=== PATIENT | male | born 1985 | race Caucasian/White ===

== ENCOUNTER → 2021-03-22 15:59 | Outpatient (BNVA) | payer MEDICARE, BC, MEDICAID, SELFPAY | PROVIDERS: Visit Provider Internal Medicine | DX: M86.672 Other chronic osteomyelitis, left ankle and foot (principal); E10.9 Type 1 diabetes mellitus without complications; F17.210 Nicotine dependence, cigarettes, uncomplicated; Z89.432 Acquired absence of left foot | CPT/HCPCS: 99202 ==

== ENCOUNTER 2021-07-16 16:21 | Outpatient (REF) | payer BC, MEDICAID, SELFPAY | END 2021-07-16 16:22 | disposition home or self-care (01) | LOC: HO.LNP 16:21 | PROVIDERS: Visit Provider Physician Assistant | DX: Z13.89 Encounter for screening for other disorder (principal) | CPT/HCPCS: 87071; 87077; 87147; 87186; 87205 ==

== ENCOUNTER 2022-01-14 17:40 | Outpatient (REF) | payer MEDICARE, MEDICAID, SELFPAY ==
--- NOTE | ~2022-01-14 | MR_ITS ---
EXAMINATION: MRI FOOT WITHOUT CONTRAST, LEFT CLINICAL INFORMATION: Nonhealing wound. COMPARISON: None TECHNIQUE: MRI without contrast is performed on the left foot. According to the technologist, the patient refused intravenous contrast administration. FINDINGS: Transmetatarsal amputation. There is skin thickening distal to the 1st metatarsal osteotomy. There is a bony protuberance/spurring at the plantar aspect of the distalmost 1st metatarsal which is in close proximity to a shallow soft tissue ulceration. Soft tissue edema compatible with cellulitis. No abscess. There is mild edema of the underlying spurring and marrow edema of the distalmost 1st metatarsal particularly the lateral aspect, which is suspicious for osteomyelitis. Mild marrow edema is also present at the lateral aspect of the cuboid which could represent a contusion or stress reaction. Bone marrow signal is otherwise unremarkable. MR/MR foot LT wo con IMPRESSION: 1. Transmetatarsal amputation with a shallow soft tissue ulceration at the plantar aspect of the distal 1st metatarsal. There is mild marrow edema of the distalmost 1st metatarsal which is suspicious for osteomyelitis. No abscess. 2. Mild marrow edema at the lateral aspect of the cuboid which could represent a contusion or stress reaction.
--- NOTE | ~2022-01-14 | XR_ITS ---
EXAMINATION: CR X-RAY PRE-MRI SCREENING CLINICAL INFORMATION: Pre-MRI orbit, rule out foreign body. COMPARISON: None TECHNIQUE: 3 views of the orbits were obtained. FINDINGS: The bony orbits are intact. No radiopaque foreign body is seen. The paranasal sinuses are clear. No other osseous abnormalities are identified. XR/XR pre mri screening IMPRESSION: Unremarkable orbits. No radiopaque foreign body seen.
== END 2022-01-14 17:41 | disposition home or self-care (01) ==
LOC: HO.MRI 17:40
PROVIDERS: Visit Provider Physician Assistant
DX: E11.621 Type 2 diabetes mellitus with foot ulcer (principal); L97.322 Non-pressure chronic ulcer of left ankle with fat layer exposed; Z89.422 Acquired absence of other left toe(s)
CPT/HCPCS: 73718

== ENCOUNTER → 2022-02-17 08:24 | Outpatient (BNVA) | payer MEDICARE, MEDICAID, SELFPAY | PROVIDERS: Referring Provider Internal Medicine; Visit Provider Surgery | DX: M86.672 Other chronic osteomyelitis, left ankle and foot (principal); Z89.432 Acquired absence of left foot | CPT/HCPCS: 99202 ==

== ENCOUNTER 2022-02-28 07:01 | Day surgery (SDC) | payer MEDICARE, MEDICAID, SELFPAY ==
[2022-02-23 11:33] VITALS: BMI 23.8
--- NOTE | 2022-02-25 08:12 | P.CONAN_ITS ---
Documented by User: Ailyn Sheriff NP 02/25/22 08:15 HPI - Anesthesia Eval Consult details Narrative: 36yo M for Left Debridement Soft Tissue of Foot Ulcer, Debridement Bone of Foot Ulcer Pt admits to daily heroin use, occassional cocaine. Unable to stop prior to DOS. Case reviewed with Dr Ray. Need note of urgency from surgeon to proceed with positive urin drug screen. Dr Robles notified via tigertext and agreeable to this plan. [facility] Active Problems Active Problems: All Active Problems (Updated 02/23/22 @ 11:31 by Laura Snyder RN) Diabetes type I (Acute) History of transmetatarsal amputation of left foot (Acute) Polysubstance (including opioids) dependence, daily use (Acute) Tobacco use disorder (Acute) Chronic osteomyelitis of left foot (Acute) Past Medical History Medical History Chronic osteomyelitis of left foot Diabetes type I History of MRSA infection Polysubstance (including opioids) dependence, daily use Tobacco use disorder Surgical History Surgical History History of foot surgery History of transmetatarsal amputation of left foot Hx of surgical amputation of finger Social History Social History Household Members Other:: Lives in basement of [facility] Are you a primary rn progressive care unit to a significant other at home: No Patient Tobacco Use Status: Current everyday Tobacco user Tobacco use type: Cigarette Cigarette Packs Per Day: 0.75 Cigarettes Per Day: 15.0 Years Smoked: ~ 20 Patient Interested in Nicotine Replacement: No Patient Given Instructions on How to Stop Smoking: Yes Date Education Initiated: 02/23/22 Use of substances other than those prescribed or required for medical reasons: Yes Substance Use Type Other:: Daily Heroin for pain control Substance Use Frequency: Daily Have you been hit, kicked, punched, or otherwise hurt by someone within the past year? If so, by whom?: No Are you DNR?: No Advance Directives: No Advance Directives Information Provided: Yes Advance Directives on File: No Recently lost weight without trying: No Meds Allergies Allergy/AdvReac Type Severity Reaction Status Date / Time NSAIDS (Non-Steroidal AdvReac Vomiting Verified 02/23/22 11:30 Anti-Inflamma Home Medications Medication Instructions Recorded Confirmed Last Taken Type insulin glargine 100 unit/mL (3 40 unit subcut DAILY 02/17/22 02/23/22 Unknown History mL) subcutaneous pen (Lantus Solostar U-100 Insulin) insulin lispro 100 unit/mL See Rx Instructions .Route .COMPLEX 02/17/22 02/23/22 Unknown History subcutaneous pen (Humalog KwikPen (U-100) Insulin) levofloxacin 750 mg tablet 750 mg PO DAILY 02/17/22 02/23/22 Unknown History doxycycline hyclate 100 mg capsule 1 cap PO BID 02/23/22 02/23/22 Unknown History Exam Exam Date and Time: February 25, 2022811 Height,Weight and Vital Signs: Height 5 ft 10.5 in Weight 76.204 kg Assessment and Plan Assessment Anesthesia Assessment: Chart Reviewed Documented by User: Doreen Casarez MD 02/28/22 08:45 PMFSH Past Medical History Medical History Chronic osteomyelitis of left foot Diabetes type I History of MRSA infection Polysubstance (including opioids) dependence, daily use Tobacco use disorder Surgical History Surgical History History of foot surgery History of transmetatarsal amputation of left foot Hx of surgical amputation of finger History of Problems with Anesthesia: No Social History Social History Household Members Other:: Lives in basement of [facility] Are you a primary rn progressive care unit to a significant other at home: No Patient Tobacco Use Status: Current everyday Tobacco user Tobacco use type: Cigarette Cigarette Packs Per Day: 0.75 Cigarettes Per Day: 15.0 Years Smoked: ~ 20 Patient Interested in Nicotine Replacement: No Patient Given Instructions on How to Stop Smoking: Yes Date Education Initiated: 02/23/22 Use of substances other than those prescribed or required for medical reasons: Yes Substance Use Type Other:: Daily Heroin for pain control Substance Use Frequency: Daily Have you been hit, kicked, punched, or otherwise hurt by someone within the past year? If so, by whom?: No Are you DNR?: No Advance Directives: No Advance Directives Information Provided: Yes Advance Directives on File: No Recently lost weight without trying: No Meds Allergies Allergy/AdvReac Type Severity Reaction Status Date / Time NSAIDS (Non-Steroidal AdvReac Vomiting Verified 02/23/22 11:30 Anti-Inflamma Home Medications Medication Instructions Recorded Confirmed Last Taken Type insulin glargine 100 unit/mL (3 40 unit subcut DAILY 02/17/22 02/23/22 Unknown History mL) subcutaneous pen (Lantus Solostar U-100 Insulin) insulin lispro 100 unit/mL See Rx Instructions .Route .COMPLEX 02/17/22 02/23/22 Unknown History subcutaneous pen (Humalog KwikPen (U-100) Insulin) levofloxacin 750 mg tablet 750 mg PO DAILY 02/17/22 02/23/22 Unknown History doxycycline hyclate 100 mg capsule 1 cap PO BID 02/23/22 02/23/22 Unknown History Exam Airway Mallampati Class: III (Globally poor dentition; teeth broken and cracked) TM Dist: >3cm Neck ROM: Full Loose/Missing/Broken Teeth: Yes, Upper and Lower Heart: RRR Lungs: CTA Other: positive tox screen; however case must proceed based on osteomyelitis with exposed bone Assessment and Plan Assessment Anesthesia Assessment: Anesthesia Plan Discussed Final Anesthetic Review History of Problems with Anesthesia: No NPO: Yes ASA Class: III Final Preanesthetic Review: Meds/Allgs Chart Reviewed, Consent Obtained/Reviewed and Anes Risks/Benef Reviewed Patient Risk: Intermediate Procedure Risk: Low Anesthetic Plan Anesthetic Plan: GA Disposition: Standard PACU
[2022-02-28 07:46] LABS: Amphetamine Screen Urine Not Detected (Not Detect); Barbiturates, Urine Not Detected (Not Detect); Benzodiazepines Screen Urine Not Detected (Not Detect); Cannabinoid Screen Urine POSITIVE (Not Detect); Cocaine Screen Urine POSITIVE (Not Detect); Fentanyl, urine POSITIVE (Not Detect); Opiate Screen Urine POSITIVE (Not Detect); Phencyclidine Screen Urine Not Detected (Not Detect)
[2022-02-28] MEDS: Lactated Ringers 1,000 ML 100 ML IVCONT (07:57)
--- NOTE | 2022-02-28 09:04 | MHC.SHP ---
Pre-Procedural Eval Section A Date of Service: 02/28/22 The patient is an INPATIENT: No Changes since office visit: Yes Patient answered all questions; No Cold of Flu in the past 2 weeks, No New Medical Problems and No Changes in Medication The History & Physical has been completed within 30 days and I have reviewed it.: Yes Section B Chief Complaint: Acquired absence of left foot,chronic osteomyeliti Allergies: Allergies Allergy/AdvReac Type Severity Reaction Status Date / Time NSAIDS (Non-Steroidal AdvReac Vomiting Verified 02/23/22 11:30 Anti-Inflamma Plan Diagnosis/Plan: Unchanged I have reviewed the history and physical and performed a pertinent physical examination on my patient. No changes have occurred unless specified. Patient's tox screen is positive however the procedure needs to be performed due to the risk of limb loss with exposed bone. The patient understands the risks of anesthesia with the positive tox screen and wishes to proceed. Time Spent With Patient Time: Total time managing care of this patient today ____ minutes.
--- NOTE | 2022-02-28 09:41 | W.PM.OPN ---
Operative Note Operative Note Date of Service: 02/28/22 Narrative: Preoperative diagnosis: osteomyelitis left foot, status post TMA Postoperative diagnosis: same Procedure: debridement 1st metatarsal left foot including skin and bone Surgeon: Trace Robles MD [employer] Director: none Anesthesia: general LMA Indications for procedure: 36-year-old male patient presenting with a history of diabetes mellitus, s/p bilateral transmetatarsal amputation. He has a chronic draining wound of the left foot at the 1st metatarsal head and was found to have osteomyelitis. He presents today for debridement. Operative findings: Exposed bone coming through open wound consistent with osteomyelitis. Specimen: Skin subcutaneous tissue and bone left foot Estimated blood loss: less than 2 mL Complications: none Procedure details: Patient was taken to the OR and placed in the supine position. After administering general anesthesia, the patient's left foot was prepped with Betadine and draped in a sterile fashion. A surgical time-out was called the consent confirmed. Patient received preoperative antibiotics and Venodyne boots were in place on the right leg. A local block was performed using Sensorcaine 0.5% as a digital block. A plantar wound was noted with exposed bone through the wound. This was grasped using a rongeur and the bone easily removed. The bone appeared to be infected in a fractured piece. This was sent to pathology for further examination. Surrounding callus and nonviable subcutaneous tissue was then excised with a total area debrided measured 2 x 2 cm. Rongeur was used to further trim the 1st metatarsal distal segment. Bone appeared healthy at this point. Wounds were then thoroughly irrigated with saline solution and suctioned dry. Wounds were packed with 1/4 inch iodoform gauze followed by fluffed gauze and Kerlix. The patient tolerated the procedure well was transferred to PACU in stable condition. Sponge, instrument, and needle counts reported as correct. Patient was discharged with a prescription for oxycodone 5 mg p.o. q.6 hours p.r.n. for pain (15 tablets).
[2022-02-28 09:46] VITALS: BP 130/81; PULSE 66; RESP 18; TEMP 36.2; O2SAT 100
[2022-02-28 09:51] VITALS: BP 129/84; PULSE 69; RESP 18; O2SAT 100
[2022-02-28 09:56] VITALS: BP 138/92; PULSE 71; RESP 18; O2SAT 100
[2022-02-28 10:01] VITALS: BP 150/93; PULSE 75; RESP 18; O2SAT 100
[2022-02-28 10:16] VITALS: BP 158/90; PULSE 84; RESP 20; O2SAT 100
[2022-02-28] MEDS: HYDROmorphone HCl 0.5 MG/0.5 ML SYRINGE IVPUSH (10:16)
[2022-02-28] MEDS: oxyCODONE HCl Immed Release 5 MG TABLET 10 MG PO (10:16)
[2022-02-28 10:21] VITALS: BP 142/91; PULSE 78; RESP 20; O2SAT 99
--- NOTE | 2022-02-28 10:43 | PC.NURSE ---
PATIENT REFUSED WHEELCHAIR. PATIENT SIGNED DISCHARGE PAPERS BUT REFUSED TO BE BROUGHT DOWN TO FRONT IN WHEELCHAIR. PATIENT LEFT AMA AFTER SIGNING DC PAPERS ON HIS OWN. PT DID NOT SIGN AMA PAPERS.
== END 2022-02-28 10:47 | disposition home or self-care (01) ==
PROVIDERS: Nurse Practitioner; PCP Internal Medicine; Visit Provider Surgery
PROC: (CPT 11044; principal; 2022-02-28 09:10)
PROC: (CPT 11044; 2022-02-28 09:10)
DX: E10.69 Type 1 diabetes mellitus with other specified complication (principal); M86.672 Other chronic osteomyelitis, left ankle and foot; M87.875 Other osteonecrosis, left foot; E10.621 Type 1 diabetes mellitus with foot ulcer; L97.429 Non-pressure chronic ulcer of left heel and midfoot with unspecified severity; Z79.4 Long term (current) use of insulin; Z89.432 Acquired absence of left foot; F19.20 Other psychoactive substance dependence, uncomplicated; F17.210 Nicotine dependence, cigarettes, uncomplicated; Z86.14 Personal history of Methicillin resistant Staphylococcus aureus infection; Z79.899 Other long term (current) drug therapy
CPT/HCPCS: 11044; 80307; 88304; 88311; J0690; J1100; J1170; J2250; J2370; J2405; J2795; J3010

== ENCOUNTER → 2022-03-10 08:58 | Outpatient (BNVA) | payer MEDICARE, MEDICAID, SELFPAY | PROVIDERS: PCP Internal Medicine; Referring Provider Internal Medicine; Visit Provider Surgery | DX: Z13.89 Encounter for screening for other disorder (principal) | CPT/HCPCS: 99212 ==

== ENCOUNTER → 2022-03-22 16:00 | Outpatient (RCR) | payer MEDICARE, MEDICAID, SELFPAY | END | disposition home or self-care (01) | LOC: HO.WCC 06-15 08:57 | PROVIDERS: PCP Internal Medicine; Visit Provider Physician Assistant | DX: E10.621 Type 1 diabetes mellitus with foot ulcer (principal); L97.522 Non-pressure chronic ulcer of other part of left foot with fat layer exposed; T87.89 Other complications of amputation stump; E10.69 Type 1 diabetes mellitus with other specified complication; M86.9 Osteomyelitis, unspecified; E10.65 Type 1 diabetes mellitus with hyperglycemia; Z72.0 Tobacco use; Z89.422 Acquired absence of other left toe(s); Z79.2 Long term (current) use of antibiotics; Z79.4 Long term (current) use of insulin; Z79.899 Other long term (current) drug therapy; Z79.891 Long term (current) use of opiate analgesic | CPT/HCPCS: 11042; 11043; 15275; 87070; 87071; 87077; 87147; 87186; 87205; 97597; 97602; 99212; 99213; Q4187 ==

== ENCOUNTER 2022-05-27 12:44 | Outpatient (RCR) | payer MEDICARE, MEDICAID, SELFPAY ==
--- NOTE | ~2022-05-27 | XR_ITS ---
EXAMINATION: XR FOOT, LEFT CLINICAL INFORMATION: Wound, left foot. COMPARISON: None available. TECHNIQUE: AP, lateral, and oblique views of the left foot. FINDINGS: There has been a prior transmetatarsal amputation. The amputation bony margins appear sharp, without abnormal erosive change or periosteal thickening. No soft tissue gas or foreign body is seen. There is no left ankle joint effusion. Boehler's angle is normal. There is no calcaneal spur. XR/XR foot LT min 3V IMPRESSION: There are postoperative changes consistent with a prior transmetatarsal amputation. The amputation margins appear sharp, without abnormal bone erosion or periosteal thickening. No soft tissue gas is noted.
== END 2022-12-09 14:45 | disposition home or self-care (01) ==
LOC: HO.WCC 12:44
PROVIDERS: PCP Internal Medicine; Visit Provider Physician Assistant
DX: E10.621 Type 1 diabetes mellitus with foot ulcer (principal); L97.522 Non-pressure chronic ulcer of other part of left foot with fat layer exposed; T87.89 Other complications of amputation stump; E10.40 Type 1 diabetes mellitus with diabetic neuropathy, unspecified; F11.20 Opioid dependence, uncomplicated; F17.210 Nicotine dependence, cigarettes, uncomplicated; Z89.422 Acquired absence of other left toe(s)
CPT/HCPCS: 11042; 73630; 87070; 87073; 87076; 87077; 87186; 87205

== ENCOUNTER 2022-12-09 06:00 | Emergency (ER) | payer OTHER, MEDICARE, MEDICAID, SELFPAY ==
--- NOTE | 2022-12-09 | ECG_ITS ---
Test Reason : CP Blood Pressure : / mmHG Vent. Rate : 072 BPM Atrial Rate : 072 BPM P-R Int : 132 ms QRS Dur : 092 ms QT Int : 402 ms P-R-T Axes : 066 046 053 degrees QTc Int : 440 ms Normal sinus rhythm Nonspecific ST abnormality Abnormal ECG No previous ECGs available Referred By: Generic ED Physician Electronically Signed By:ALLY BARRERA MD
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
[2022-12-09 06:02] VITALS: BP 144/67; BP 153/94; PULSE 92; PULSE 94; RESP 18; O2SAT 98; BMI 23.1
[2022-12-09 06:34] LABS: Glucose, Whole Blood > 600 mg/dL (60-115)
[2022-12-09 06:34] LABS: Glucose, Whole Blood > 600 mg/dL (60-115)
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
[2022-12-09] MEDS: Insulin Regular, Human 100 UNIT/ML 3 ML VIAL 10 UNIT IVPUSH (06:47)
[2022-12-09] MEDS: 0.9 % Sodium Chloride 1,000 ML 999 ML IVCONT ×2 (06:47→07:48)
[2022-12-09 06:50] LABS: MANUAL DIFF FLAG NO
[2022-12-09 06:51] LABS: Basophils Percent Auto 0.5 % (0-2); Eosinophils Absolute Auto 0.2 X10*3/uL (0.0-0.4); Eosinophils Percent Auto 2.5 % (0-4); Hematocrit 36.6 % (42.0-52.0); Imm Gran Abs Auto 0.01 X10*3/uL (0.00-0.03); Imm Gran Pct Auto 0.2 % (0.0-0.4); Lymphocytes Percent Auto 16.2 % (20-40); Mean Corpuscular HGB Conc 32.8 g/dl (31.0-36.0); Mean Corpuscular Hemoglobin 27.3 pg (27.0-33.0); Mean Corpuscular Volume 83.2 fL (80.0-98.0); Mean Platelet Volume 9.6 fL (9.4-12.4); Monocytes Absolute Auto 0.3 X10*3/uL (0.1-1.2); Monocytes Percent Auto 5.1 % (2-11); Neutrophils Absolute Auto 4.6 x10*3/uL (2.0-8.3); Neutrophils Percent Auto 75.5 % (45-73); Platelet Count 306 X10*3/uL (160-400); Red Cell Distribution Width 13.2 % (11.0-16.0); White Blood Count 6.1 X10*3/uL (4.8-10.8)
[2022-12-09 06:53] LABS: Venous Blood Gas Refer to POC result
[2022-12-09 06:54] LABS: VBG Base Excess 8.4 mmol/L; VBG HCO3 33 mmol/L (22-26); VBG pCO2 49 mmHg; VBG pH 7.43 (7.32-7.43); VBG pO2 88 mmHg
[2022-12-09 07:11] LABS: Beta-Hydroxybutyrate 0.05 mmol/L (0.02-0.27)
[2022-12-09 07:19] LABS: Alanine Aminotransferase 144 U/L (0-40); Albumin Level 3.8 g/dL (3.5-5.0); Alkaline Phosphatase 492 U/L (39-117); Anion Gap 13 (12-20); Aspartate Amino Transferase 191 U/L (5-37); Bilirubin Direct 0.2 mg/dL (0.0-0.5); Bilirubin Total 0.3 mg/dL (0.0-1.0); Blood Urea Nitrogen 17 mg/dL (9-16); Calcium 9.9 mg/dL (8.4-10.2); Carbon Dioxide 28 mmol/L (22-29); Chloride 100 mmol/L (96-108); Creatinine Clr Calc Pharmacy 65.6; Estimated Glomerular Filt Rate 49; Glucose Random 644 mg/dL (60-115); Potassium 5.1 mmol/L (3.3-5.1); Sodium 136 mmol/L (135-145)
--- NOTE | 2022-12-09 07:20 | PC.NURSE ---
Patient alert but lethargic, bs re-checked 393, placed on monitor, fluids running per order
[2022-12-09 07:21] VITALS: PULSE 78; RESP 18; O2SAT 97
[2022-12-09 07:23] LABS: Glucose, Whole Blood 399 mg/dL (60-115)
--- NOTE | 2022-12-09 08:29 | PC.NURSE ---
Alert and oriented, remains slow to respond. Denies pain or discomfort. Voided large amount of clear urine into urinal. NSr on monitor.
[2022-12-09 08:30] VITALS: BP 150/87; PULSE 73; RESP 18; O2SAT 97
--- NOTE | 2022-12-09 08:47 | PC.NURSE ---
BS 128, patient drank two cups of apple juice.
[2022-12-09 08:58] LABS: Ethanol < 10 mg/dL
--- NOTE | 2022-12-09 09:06 | PC.NURSE ---
Patient requesting discharge. Drank two more cups of apple juice. Dexcome reading bs 117. Patient attempting to remove own iv, stating he is leaving. IV removed, provider aware. Mom and sister at bedside
--- NOTE | 2022-12-09 09:11 | PC.NURSE ---
Patient discharge with mom and girlfriend. Gait steady, mom and gf aware that BS is 117, mother stating she is a diabetic and will monitor dexacom to ensure BS does not drop
[2022-12-09 09:23] LABS: Glucose, Whole Blood 128 mg/dL (60-115)
== END 2022-12-09 09:13 | disposition home or self-care (01) ==
LOC: HO.ED 09:07
PROVIDERS: Emergency Medicine; Physician Assistant; Emergency Provider Emergency Medicine Emergency Medical Services; PCP Internal Medicine
DX: E10.65 Type 1 diabetes mellitus with hyperglycemia (principal); N17.9 Acute kidney failure, unspecified; F19.20 Other psychoactive substance dependence, uncomplicated; F17.210 Nicotine dependence, cigarettes, uncomplicated; Z86.14 Personal history of Methicillin resistant Staphylococcus aureus infection; Z79.4 Long term (current) use of insulin; Z79.899 Other long term (current) drug therapy
CPT/HCPCS: 36415; 70450; 72125; 80048; 80076; 80307; 82010; 82803; 82947; 85025; 93005; 96361; 96374; 99284; 99285

== ENCOUNTER 2024-11-12 15:55 | Emergency (ER) | payer MEDICARE, MEDICAID, SELFPAY ==
--- NOTE | ~2024-11-12 | XR_ITS ---
CLINICAL HISTORY: infection 3 views left foot Comparison: 06/09/2022 Findings: There is soft tissue lucency at the region of transmetatarsal forefoot amputation. The scattered soft tissue lucencies are most likely related to skin folds, but can not exclude draining sinus from osteomyelitis, correlate with clinical presentation. There is cortical bone destruction of the proximal 5th metatarsal post amputation remnant. There are also signs of bone destruction involving tibial side of the navicular bone medial cortex. No radiopaque foreign body. Impression: Findings are consistent with acute osteomyelitis of proximal 5th metatarsal surgical remnant which has progressed compared to 06/09/2022. Consider MRI with contrast for definitive diagnostic information. This document has been electronically signed by: Jarret Porras MD on 11/12/2024 17:34:19
--- NOTE | ~2024-11-12 | XR_ITS ---
CLINICAL HISTORY: pain r o osteo 3 views left ankle Comparison: None Findings: Ankle mortise is intact. No joint effusion. No radiopaque foreign body. Impression: Erosion and fragmentation of the proximal 5th metatarsal surgical remnant has progressed when compared to previous exam. The appearance is consistent with acute osteomyelitis. This document has been electronically signed by: Jarret Porras MD on 11/12/2024 17:37:27
--- NOTE | 2024-11-12 16:16 | ED_ITS ---
HPI - Extremity Injury (Lower) General Chief Complaint: General Medical Stated Complaint: L Foot infection Time Seen by Provider: 11/12/24 17:23 Source: patient Mode of arrival: ambulatory Limitations: no limitations History of Present Illness ED Provider: Dr. Alisha Woodall HPI Narrative: Patient comes to the emergency room complaining of left stump pain. Patient has history of partial foot amputation due to chronic osteomyelitis. Patient states that for the last 2-3 months, he has been complaining of worsening pain. Patient states that he has an opening on the lateral frontal aspect of the stump on the left side, and today he pulled out something that looked like a bone. Patient states that he has been having pain for weeks, but patient states that he had to be mentally prepared to come to the hospital. 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 Related Data Home Medications ?Medication ?Instructions ?Recorded ?Confirmed insulin lispro 100 unit/mL See Protocol subcut TIDWM 0 02/17/22 11/12/24 subcutaneous pen (Humalog KwikPen (U-100) Insulin) insulin glargine 100 unit/mL (3 0 - 45 unit subcut CLEMENTINA LY 11/12/24 11/12/24 mL) subcutaneous pen (Basaglar KwikPen U-100 Insulin) Allergies Allergy/AdvReac Type Severity Reaction Status Date / Time cephalexin (From Keflex) Allergy Vomiting Verified 11/12/24 16:19 Review of Systems 2 Review of Systems: Constitutional : No Weight loss, No Fever, No Chills, No Night Sweats, No Fatigue, No Malaise ENT/Mouth : No Hearing loss, No Ear Pain, No Nasal Congestion, No Sinus Pain, No Hoarseness, No sore throat, No Rhinorrhea, No Swallowing Difficulty Eyes: No Eye Pain, No Swelling, No Redness, No Foreign Body, No Discharge, No Vision Changes Cardiovascular : No Chest Pain, No SOB, No Dyspnea on Exertion, No Orthopnea, No Edema, No Palpitations Respiratory : No Cough, No Sputum, No Wheezing, No Smoke Exposure, No Dyspnea Gastrointestinal : No Nausea, No Vomiting, No Diarrhea, No Constipation, No abdominal Pain, No Hematochezia, No Melena Genitourinary : no irregular bleeding, No Dysuria, No Urinary Frequency, No Hematuria, No Urinary Incontinence, No Urgency, No Flank Pain, No Urinary Flow Changes, No Hesitancy Musculoskeletal : Complaining of left stump pain and drainage Skin : No Skin Lesions, No rash Neuro : No Weakness, No Numbness, No Paresthesias, No Loss of Consciousness, No Dizziness, No Headache Psych : No Anxiety/Panic, No Depression, No SI/HI/AH/VH, No Social Issues, Heme/Lymph: No Bruising, No Bleeding,No Lymphadenopathy Endocrine : No Polyuria, No Polydipsia, No Temperature Intolerance [facility] Past Medical History Medical History History of MRSA infection Chronic osteomyelitis of left foot Tobacco use disorder Polysubstance (including opioids) dependence, daily use Diabetes type I Surgical History History of foot surgery History of transmetatarsal amputation of left foot Hx of surgical amputation of finger S/P debridement (02/28/22) Social History Social History Household Members Other:: Lives in basement of [facility]mother[facility] House Are you a primary rn care transition to a significant other at home: No Comment: requests crutches Patient Tobacco Use Status: Current everyday Tobacco user Tobacco use type: Cigarette Cigarette Packs Per Day: 0.75 Cigarettes Per Day: 15.0 Years Smoked: ~ 20 Substance Use Type: Heroin Advance Directives: No Advance Directives Information Provided: No Physical Exam 2 Exam: Exam: Appearance: Alert. Oriented X3. No acute distress. Eyes: Pupils equal, round and reactive to light. ENT: Pharynx normal. Neck: Normal inspection. Neck supple. No lymph nodes noted. No crepitus CVS: Normal heart rate and rhythm. Pulses normal. Normal S1 and S2 Respiratory: No respiratory distress. Breath sounds normal. No Wheezing. No rales Abdomen: Soft and nontender. No rigidity. No distention. Skin: Skin warm and dry. Normal skin color. Normal skin turgor. Extremities: Patient has a right BKA, looks within normal limits. On the left foot, patient has a partial amputation of the foot. There is a small opening in the lateral frontal aspect, draining serosanguineous fluid, very tender to palpation on the lateral aspect of the stump Neuro: Oriented X 3. No motor deficit. No sensory deficit. Moving all extremities. No slurred speech. CN 2 through 12 grossly intact Psych: calm, cooperative, anxious, tearful Vital Signs: Vital Signs: Last Vital Signs Temp 98.6 F 11/12/24 18:15 Pulse 102 H 11/12/24 18:15 Resp 16 11/12/24 18:15 BP 125/77 11/12/24 18:15 Pulse Ox 98 11/12/24 18:15 O2 Del Method Room Air 11/12/24 18:15 BMI result Body Mass Index 20.1 Course Course Course Narrative: This is an RME: Additional HPI, ROS, PE not included below will be deferred to primary provider. RME assessment and note performed by: María Esteban PA-C 39-year-old male patient with history of diabetes mellitus type 1 on insulin, and peripheral vascular disease status post bilateral amputations including transmetatarsal amputation of the left foot, who presents to the ER with complaints of left lower extremity pain. Patient reports that he noticed a bony like structure poking out of his foot which he pulled out and through in the trash 3-4 days ago. He states that he has had increased pain and swelling. No fevers. Plan: Labs, x-ray, further ER evaluation needed. Medications Administered Generic Name Dose Route Start Last Admin Trade Name Freq PRN Reason Stop Dose Admin Sodium Chloride 2,000 mls @ 999 mls/hr 11/12/24 18:02 11/12/24 19:26 Ns IVCONT 11/12/24 20:02 0 mls/hr .Q2H1M ONE Infusion Discontinued Medications Generic Name Dose Route Start Last Admin Trade Name Freq PRN Reason Stop Dose Admin Diazepam 2.5 mg 11/12/24 18:02 11/12/24 18:26 Diazepam 10 Mg/2 Ml Cartridge IVPUSH 11/12/24 18:03 2.5 mg STAT STA Administration Vancomycin HCl 1,500 mg/ 500 mls @ 333.333 mls/hr 11/12/24 18:11/12/24 19:26 Sodium Chloride IV 11/12/24 19:31 0 mls/hr ONCE ONE Infusion Piperacillin Sod/Tazobactam 50 mls @ 100 mls/hr 11/12/24 18:11/12/24 19:03 Sod 3.375 gm/ Sodium Chloride IV 11/12/24 18:31 Infused ONCE ONE Infusion Insulin Human Regular 10 unit 11/12/24 18:16 11/12/24 18:45 Insulin Regular, Human 100 Unit/Ml 10 Ml Vial IVPUSH 11/12/24 18:17 Not Given ONCE ONE Ketorolac Tromethamine 30 mg 11/12/24 18:13 11/12/24 18:29 Ketorolac Tromethamine 30 Mg/Ml Vial IVPUSH 11/12/24 18:14 Not Given ONCE ONE Morphine Sulfate 4 mg 11/12/24 18:52 11/12/24 18:58 Morphine Sulfate 4 Mg/Ml Cartridge IVPUSH 11/12/24 18:53 4 mg ONCE ONE Administration Protocol Ondansetron HCl 4 mg 11/12/24 18:04 11/12/24 18:25 Ondansetron Hcl 4 Mg/2 Ml Vial IVPUSH 11/12/24 18:05 4 mg ONCE ONE Administration Medical Decision Making Medical Decision Making MDM Narrative: My interpretation of labs: Patient's white blood cell count 9.4, hematology at baseline, chemistry within normal limits except by the glucose which is 416. Patient's LFTs are chronically elevated at at baseline. Lactic acid is 4.5. However, patient's white blood cell count is within normal limits, no fever, no chills, patient is tachycardic likely secondary to anxiety. Sepsis is not suspected. X-ray show acute changes and the 5th metatarsal, consistent with acute osteomyelitis. Patient is receiving IV fluids, Zosyn, vancomycin, pain medications, antiemetic Patient was given also IV diazepam. Patient is very emotional, anxious, tearful, patient states that he change his mind, does not want any treatment, he is not ready for an amputation. I discussed with the patient that the decision of a BKA has not been determined. In the meantime, patient will start IV fluids and antibiotics in the above-mentioned medications. Patient agrees with plan. I discussed the patient with Dr. Lomeli from the Medicine team, patient being admitted. I was informed that the patient's nurse that he ripped his IV out and walked out of the ED. The hospitalist has been informed Differential Diagnosis Differential Diagnoses: The differential diagnosis associated with the presentation includes (Osteomyelitis, cellulitis, abscess) Admission/Observation Consideration of admission/observation: Escalation of care including admission/observation considered Consult Healthcare Provider Management of the patient was discussed with: Hospitalist Lab Data MDM Lab Attestation statement: I reviewed the patient's lab results. 11/12/24 16:53 11/12/24 16:53 Labs: Lab Results 11/12/24 Range/Units 16:53 WBC 9.4 (4.8-10.8) X10*3/uL RBC 4.26 L (4.60-5.80) X10*6/uL Hgb 10.6 L (14.0-18.0) g/dl Hct 34.6 L (42.0-52.0) % MCV 81.2 (80.0-98.0) fL MCH 24.9 L (27.0-33.0) pg MCHC 30.6 L (31.0-36.0) g/dl RDW 14.4 (11.0-16.0) % Plt Count 345 (160-400) X10*3/uL MPV 10.4 (9.4-12.4) fL Immature Gran % (Auto) 0.5 H (0.0-0.4) % Neut % (Auto) 71.2 (45-73) % Lymph % (Auto) 21.3 (20-40) % Smyth % (Auto) 4.9 (2-11) % Eos % (Auto) 1.7 (0-4) % Baso % (Auto) 0.4 (0-2) % Lymph # (Auto) 2.0 (1.2-4.9) X10*3/uL Smyth # (Auto) 0.5 (0.1-1.2) X10*3/uL Eos # (Auto) 0.2 (0.0-0.4) X10*3/uL Baso # (Auto) 0.0 (0.0-0.2) X10*3/uL Abs Immat Gran (auto) 0.05 H (0.00-0.03) X10*3/uL Absolute Neuts (auto) 6.7 (2.0-8.3) x10*3/uL Absolute Nucleated RBC 0.000 (0.0-0.012) X10*3/uL Nucleated RBC % (auto) 0.0 (0.0-0.2) /100WBC ESR 101 H (0-15) MM/HR Sodium 137 (135-145) mmol/L Potassium 4.4 (3.3-5.1) mmol/L Chloride 99 (96-108) mmol/L Carbon Dioxide 27 (22-29) mmol/L Anion Gap 15 (12-20) BUN 18 H (9-16) mg/dL Creatinine 0.95 (0.5-1.4) mg/dL Estim Creat Clear Calc 93.7 Estimated GFR > 60 Random Glucose 416 H* (60-115) mg/dL Lactic Acid 4.5 H* (0.5-2.0) mmol/L Calcium 9.4 (8.4-10.2) mg/dL Magnesium 2.1 (1.6-2.6) mg/dL Total Bilirubin 0.2 (0.0-1.0) mg/dL Direct Bilirubin 0.2 (0.0-0.5) mg/dL AST 47 H (5-37) U/L ALT 49 H (0-40) U/L Alkaline Phosphatase 642 H (39-117) U/L C-Reactive Protein 4.98 H (< or = 0.50) mg/dL Total Protein 7.4 (6.5-8.0) g/dL Albumin 3.4 L (3.5-5.0) g/dL Beta-Hydroxybutyrate 0.07 (0.02-0.27) mmol/L Independent Interpretation I performed an independent interpretation of an: Plain X-Ray Radiology Impression Discussion of test interpretation with radiology: I have reviewed the radiologist's reading. Radiologist Impression: There is soft tissue lucency at the region of transmetatarsal forefoot amputation. The scattered soft tissue lucencies are most likely related to skin folds, but can not exclude draining sinus from osteomyelitis, correlate with clinical presentation. There is cortical bone destruction of the proximal 5th metatarsal post amputation remnant. There are also signs of bone destruction involving tibial side of the navicular bone medial cortex. No radiopaque foreign body. Impression: Findings are consistent with acute osteomyelitis of proximal 5th metatarsal surgical remnant which has progressed compared to 06/09/2022. Consider MRI with contrast for definitive diagnostic information. External Record Review External record reviewed: Inpatient record (Last time that the patient was seen was in 2022) Critical Care Time Critical Care Time Critical Care Time: Yes Total Critical Care Time: 60 Attestation: I have personally provided critical care time. Time includes review of lab data, radiology results, discussion with consultants, and monitoring for potential decompensation. Intervention performed as documented. Discharge Plan Discharge Clinical Impression: Osteomyelitis, Type 1 diabetes mellitus with hyperglycemia Patient Disposition: Admitted As Inpatient
[2024-11-12 16:18] VITALS: BP 109/70; PULSE 101; RESP 18; TEMP 36.8; O2SAT 98; BMI 20.1
[2024-11-12 17:01] LABS: MANUAL DIFF FLAG NO
[2024-11-12 17:18] LABS: Alanine Aminotransferase 49 U/L (0-40); Albumin Level 3.4 g/dL (3.5-5.0); Alkaline Phosphatase 642 U/L (39-117); Anion Gap 15 (12-20); Aspartate Amino Transferase 47 U/L (5-37); Blood Urea Nitrogen 18 mg/dL (9-16); Calcium 9.4 mg/dL (8.4-10.2); Carbon Dioxide 27 mmol/L (22-29); Chloride 99 mmol/L (96-108); Creatinine Clr Calc Pharmacy 93.7; Estimated Glomerular Filt Rate > 60; Magnesium 2.1 mg/dL (1.6-2.6); Potassium 4.4 mmol/L (3.3-5.1); Sodium 137 mmol/L (135-145); Total Protein 7.4 g/dL (6.5-8.0)
[2024-11-12 17:21] LABS: Hematocrit 34.6 % (42.0-52.0); Hemoglobin 10.6 g/dl (14.0-18.0); Imm Gran Abs Auto 0.05 X10*3/uL (0.00-0.03); Imm Gran Pct Auto 0.5 % (0.0-0.4); Lymphocytes Absolute Auto 2.0 X10*3/uL (1.2-4.9); Mean Corpuscular HGB Conc 30.6 g/dl (31.0-36.0); Mean Corpuscular Hemoglobin 24.9 pg (27.0-33.0); Mean Corpuscular Volume 81.2 fL (80.0-98.0); NRBC Abs Auto 0.000 X10*3/uL (0.0-0.012); NRBC Pct Auto 0.0 /100WBC (0.0-0.2); Platelet Count 345 X10*3/uL (160-400); Red Blood Count 4.26 X10*6/uL (4.60-5.80); White Blood Count 9.4 X10*3/uL (4.8-10.8)
--- OUTSIDE RECORDS SUMMARY | 2024-11-12 17:45 | XMS_ITS | Clinical Summary ---
Author Organization [employer] Address [address] [place] [address] Care Team Providers Care Process Mold Technician Name Role Phone Lisa Oneal [facility] Primary Care Provider [phone] Allergies Active Allergy Reactions Criticality Noted Date Comments Nsaids 07/06/2022 Other reaction(s): severe vomitting Medications BD Pen Needle Kirstie 2nd Gen 32G X 4 MM misc USE TO INJECT INSULIN UP TO 6 TIMES A DAY 04/28/2022 Active HumaLOG KWIKPEN 100 UNIT/ML injection 05/02/2022 Active Lantus SoloStar 100 UNIT/ML pen INJECT 55 UNITS UNDER THE SKIN DAILY. 03/29/2022 Active Continuous Blood Gluc Transmit (Dexcom G6 transmitter) misc USE DIRECTED TO CHECK BLOOD SUGAR CHANGE EVERY 90 DAYS 06/01/2022 Active Continuous Blood Gluc Sensor (Dexcom G6 Sensor) misc USE DIRECTED TO CHECK BLOOD SUGAR CHANGE EVERY 10 DAYS 06/01/2022 Active DULoxetine (Cymbalta) [address] capsule Take 60 mg by mouth. 06/29/2015 Active Active Problems Problem Noted Date Diagnosed Date Type 1 diabetes mellitus wit h diabetic peripheral angiopathy without gangrene 07/08/2022 Primary hypertension 07/08/2022 Opioid use disorder 07/08/2022 Polysubstance use disorder 07/08/2022 IVDU (intravenous drug user) 07/08/2022 Schizoaffective disorder (CMS/HCC) 07/08/2022 Severe major depression with psychotic features (CMS/HCC) 07/08/2022 Osteomyelitis of left foot (CMS/HCC) 07/08/2022 Social History Tobacco Use Types Packs/Day Years Used Date Smoking Tobacco: Never Assessed Tobacco Cessation:Counseling Given: Not Answered Sex and Gender Information Value Date Recorded Sex Assigned at Male 06/07/2022 9:54 AM EDT Legal Sex Male 9:51 AM EDT Gender Identity Male 06/07/2022 9:54 AM EDT Sexual Orientation Straight 06/07/2022 9: 54 AM EDT Plan of Treatment Health Maintenance Due Date Last Done Comments Depression Screening 1985 Disability Screening 1985 Alcohol/Substance Use Screening 1997 Tobacco Screening 1997 Family Planning (PISQ) 2000 HPV Vaccines (1 - Male 3-dos e series) 2000 DTaP/Tdap/Td Vaccines (1 - Tdap) 2004 Hepatitis B Vaccines (1 of 3 - 19+ 3-dose series) 2004 Lipid Panel 02/14/2023 02/14/2018 COVID-19 Vaccine (1 - 2023-2 5 season) 2024 Influenza Vaccine (#1) 2024 Zoster Vaccines (1 of 2) 05/16/2035 RSV Patients and Pa tients Aged 60 years or older (1 - 1-dose 75+ series) 2060 HIB Vaccines Aged Out No longer eligi ble based on patient's age to complete this topic Hepatitis A Vaccines Aged Out No long er eligible based on patient's age to complete this topic IPV Vaccines Aged Out No longer eligi ble based on patient's age to complete this topic Meningococcal B Vaccine Aged Out No l onger eligible based on patient's age to complete this topic Meningococcal Vaccine Aged Out No coreen brigette eligible based on patient's age to complete this topic Pneumococcal Vaccine: Pediat rics (0 to 5 Years) and At-Risk Patients (6 to 49) Years Aged Out No longer eligi ble based on patient's age to complete this topic RSV under 20 months Aged Out No longe r eligible based on patient's age to complete this topic Rotavirus Vaccines Aged Out No longer eligible based on patient's age to complete this topic Procedures Procedure Name Priority Date/Time Associated Diagnosis Comments LIPID PANEL, STANDARD Routine 02/14/2018 from Last 3 Months or Most Recently Relevant to Health Maintenance Results * (ABNORMAL) Lipid Panel, Standard (02/14/2018) Triglycerides 116 40 - 160 mg/dL Cholesterol 156 0 - 200 mg/dL HDL Cholesterol 73(A) 35 - 70 mg/dL LDL Cholesterol 60 mg/dL Blood Venous blood specimen / Unknown us Historical Provider LAB BLOOD ORDERABLES Sarah l Result from Last 3 Months or Most Recently Relevant to Health Maintenance Care Teams Process Mold Technician Relationship Specialty Start Date End Date Lisa Oneal, INVASIVE PHYSICIAN [address] [place] [address] PCP - General Family Medicine 06/07/22
[2024-11-12 17:58] VITALS: BP 125/77; PULSE 100; RESP 20; O2SAT 99
--- NOTE | 2024-11-12 17:59 | MHC.EDTECH ---
pt refused POC check, RN aware
[2024-11-12 18:15] VITALS: BP 125/77; PULSE 102; RESP 16; TEMP 37; O2SAT 98
[2024-11-12] MEDS: diazePAM 10 MG/2 ML CARTRIDGE 2.5 MG IVPUSH (18:26)
--- NOTE | 2024-11-12 18:45 | PC.NURSE ---
Pt refusing insulin and fingersticks, Dr Woodall aware
[2024-11-12 18:59] LABS: Reflex Lactate? Lactic Acid Added
--- NOTE | 2024-11-12 19:23 | PC.NURSE ---
assumed care for pt at this time. pt is requesting to leave ama. pt stating when the vanco IVF was started he began vomiting and needs fresh air, pt educated on importance of staying for admission but pt refusing to stay and requesting to leave
--- NOTE | 2024-11-12 19:31 | PM.EVENT ---
Event Note Date of Service: 11/12/24 Event Note: 7:25 p.m. - I went to patient's room and Tg LOCKETT told me patient pulled out his IV and abandoned the hospital. Time Spent With Patient Time: Total time managing care of this patient today ____ minutes.
--- NOTE | 2024-11-12 19:38 | PHA.MEDREC ---
Addendum entered by Robbie Ortiz [facility] 11/12/24 19:43: med rec reviewed Original Note: Pharmacy Consult ? Medication Reconciliation Pharmacy has completed the medication reconciliation. Patient states he is only taking Insulin Glargine 45 units daily and Humalog 100units/ml Per sliding scale TID.
[2024-11-13 04:07] VITALS: BP 125/77; PULSE 102; RESP 16; TEMP 37; O2SAT 98
== END 2024-11-12 19:40 | disposition left against medical advice (07) ==
LOC: HO.ED 18:27 → HO.EDOVER 11-13 04:07
PROVIDERS: Physician Assistant Medical; Emergency Provider Emergency Medicine; PCP Internal Medicine
DX: E10.69 Type 1 diabetes mellitus with other specified complication (principal); M86.9 Osteomyelitis, unspecified; E10.65 Type 1 diabetes mellitus with hyperglycemia; F17.200 Nicotine dependence, unspecified, uncomplicated; Z71.6 Tobacco abuse counseling; Z89.511 Acquired absence of right leg below knee; Z79.4 Long term (current) use of insulin
CPT/HCPCS: 36415; 73610; 73630; 80048; 80076; 82010; 83605; 83735; 85025; 85652; 86140; 87040; 96361; 96365; 96375; 99284; 99291; J2270; J2405; J2543; J3360; J3374

== ENCOUNTER → 2024-11-12 16:31 | Outpatient (BNV) | payer MEDICARE, MEDICAID, SELFPAY | PROVIDERS: Emergency Provider Emergency Medicine; PCP Internal Medicine; Visit Provider Radiology Diagnostic Radiology | DX: L08.9 Local infection of the skin and subcutaneous tissue, unspecified (principal) | CPT/HCPCS: 73610; 73630 ==

== ENCOUNTER 2024-11-14 20:19 | Inpatient (IN) | payer MEDICARE, MEDICAID, SELFPAY ==
[2024-11-14 20:27] VITALS: BP 104/63; PULSE 96; RESP 20; TEMP 36.6; O2SAT 99; BMI 21.5
--- OUTSIDE RECORDS SUMMARY | 2024-11-14 21:18 | XMS_ITS | Clinical Summary ---
Author Organization [employer] Address [address] [place] [address] Care Team Providers Care Health Sciences Dean Name Role Phone Lisa Oneal [facility] Primary Care Provider [phone] Allergies Active Allergy Reactions Criticality Noted Date [...] Unknown us Historical Provider LAB BLOOD ORDERABLES Asrah l Result from Last 3 Months or Most Recently Relevant to Health Maintenance Care Teams Health Sciences Dean Relationship Specialty Start Date End Date Lisa Oneal, SALES FLOOR MANAGER [address] [place] [address] PCP - General Family Medicine 06/07/22
[2024-11-14 21:47] LABS: MANUAL DIFF FLAG NO
[2024-11-14 21:53] LABS: Hematocrit 29.6 % (42.0-52.0); Hemoglobin 9.6 g/dl (14.0-18.0); Imm Gran Abs Auto 0.03 X10*3/uL (0.00-0.03); Imm Gran Pct Auto 0.5 % (0.0-0.4); Lymphocytes Absolute Auto 2.2 X10*3/uL (1.2-4.9); Mean Corpuscular HGB Conc 32.4 g/dl (31.0-36.0); Mean Corpuscular Hemoglobin 25.3 pg (27.0-33.0); Mean Corpuscular Volume 78.1 fL (80.0-98.0); NRBC Abs Auto 0.000 X10*3/uL (0.0-0.012); NRBC Pct Auto 0.0 /100WBC (0.0-0.2); Platelet Count 592 X10*3/uL (160-400); Red Blood Count 3.79 X10*6/uL (4.60-5.80); White Blood Count 6.1 X10*3/uL (4.8-10.8)
[2024-11-14 21:54] VITALS: BP 98/56; PULSE 86; RESP 19; TEMP 36.8; O2SAT 96
--- NOTE | 2024-11-14 22:07 | ED.SKABFB ---
HPI - Skin/Abscess/Foreign Bdy General Chief complaint: Skin/Abscess/Foreign Body Stated complaint: left foot infection Time Seen by Provider: 11/14/24 21:11 Source: patient Mode of arrival: ambulatory Limitations: no limitations History of Present Illness ED Provider: Dr. Alisha Woodall HPI narrative: Patient comes to the emergency room complaining of left foot pain, drainage, erythema. Two days ago, patient was here in the emergency room for osteomyelitis, patient was admitted but left against medical advice. Patient states that this time he is ready and committed to be admitted. Related Data Home Medications ?Medication ?Instructions ?Recorded ?Confirmed insulin lispro 100 unit/mL See Protocol subcut TIDWM 02/17/22 11/12/24 subcutaneous pen (Humalog KwikPen (U-100) Insulin) insulin glargine 100 unit/mL (3 45 unit subcut DAILY 11/12/24 11/12/24 mL) subcutaneous pen (Basaglar KwikPen U-100 Insulin) Allergies Allergy/AdvReac Type Severity Reaction Status Date / Time cephalexin (From Keflex) Allergy Vomiting Verified 11/14/24 20:30 Review of Systems Review of Systems: Constitutional : No Weight loss, No Fever, No Chills, No Night Sweats, No Fatigue, No Malaise ENT/Mouth : No Hearing loss, No Ear Pain, No Nasal Congestion, No Sinus Pain, No Hoarseness, No sore throat, No Rhinorrhea, No Swallowing Difficulty Eyes: No Eye Pain, No Swelling, No Redness, No Foreign Body, No Discharge, No Vision Changes Cardiovascular : No Chest Pain, No SOB, No Dyspnea on Exertion, No Orthopnea, No Edema, No Palpitations Respiratory : No Cough, No Sputum, No Wheezing, No Smoke Exposure, No Dyspnea Gastrointestinal : No Nausea, No Vomiting, No Diarrhea, No Constipation, No abdominal Pain, No Hematochezia, No Melena Genitourinary : no irregular bleeding, No Dysuria, No Urinary Frequency, No Hematuria, No Urinary Incontinence, No Urgency, No Flank Pain, No Urinary Flow Changes, No Hesitancy Musculoskeletal : Complaining of worsening pain, erythema in the stump of the left foot Skin : No Skin Lesions, No rash Neuro : No Weakness, No Numbness, No Paresthesias, No Loss of Consciousness, No Dizziness, No Headache Psych : No Anxiety/Panic, No Depression, No SI/HI/AH/VH, No Social Issues, Heme/Lymph: No Bruising, No Bleeding,No Lymphadenopathy Endocrine : No Polyuria, No Polydipsia, No Temperature Intolerance FOR[facility]LY [facility] Past Medical History Medical History History of MRSA infection Chronic osteomyelitis of left foot Tobacco use disorder Polysubstance (including opioids) dependence, daily use Diabetes type I Surgical History History of foot surgery History of transmetatarsal amputation of left foot Hx of surgical amputation of finger S/P debridement (02/28/22) Social History Social History Household Members Other:: Lives in basement of [facility]mother[facility] House Are you a primary home care consultant to a significant other at home: No Comment: requests crutches Patient Tobacco Use Status: Current everyday Tobacco user Tobacco use type: Cigarette Cigarette Packs Per Day: 0.75 Cigarettes Per Day: 15.0 Years Smoked: ~ 20 Substance Use Type: Heroin Advance Directives: No Advance Directives Information Provided: No Physical Exam Exam: Exam: Appearance: Alert. Oriented X3. No acute distress. Eyes: Pupils equal, round and reactive to light. ENT: Pharynx normal. Neck: Normal inspection. Neck supple. No lymph nodes noted. No crepitus CVS: Normal heart rate and rhythm. Pulses normal. Normal S1 and S2 Respiratory: No respiratory distress. Breath sounds normal. No Wheezing. No rales Abdomen: Soft and nontender. No rigidity. No distention. Skin: Skin warm and dry. Normal skin color. Normal skin turgor. C extremities below Extremities: Patient has a right BKA, on the left foot, patient has a partial foot amputation, erythematous, tender to palpation, serosanguineous drainage coming from a foramen in the anterior lateral side of the foot Neuro: Oriented X 3. No motor deficit. No sensory deficit. Moving all extremities. No slurred speech. CN 2 through 12 grossly intact Psych: calm, cooperative, normal affect Vital Signs: Vital Signs: Last Vital Signs Temp 98.2 F 11/14/24 21:54 Pulse 80 11/14/24 22:47 Resp 17 11/14/24 22:47 BP 89/52 L 11/14/24 22:47 Pulse Ox 96 11/14/24 22:47 O2 Del Method Room Air 11/14/24 22:47 BMI result Body Mass Index 21.5 Course Course Course Narrative: Patient returns for treatment of osteomyelitis. Patient states that this time he is ?emotionally ready? to be admitted to the hospital Medications Administered Discontinued Medications Generic Name Dose Route Start Last Admin Trade Name Johana PRN Reason Stop Dose Admin Diazepam 2.5 mg 11/14/24 21:43 11/14/24 22:39 Diazepam 10 Mg/2 Ml Cartridge IVPUSH 11/14/24 21:44 2.5 mg STAT STA Administration Sodium Chloride 1,000 mls @ 999 mls/hr 11/14/24 21:43 11/14/24 22:30 Ns IVCONT 11/14/24 22:43 999 mls/hr .Q1H1M ONE Administration Piperacillin Sod/Tazobactam 50 mls @ 100 mls/hr 11/14/24 21:43 11/14/24 22:30 Sod 3.375 gm/ Sodium Chloride IV 11/14/24 22:12 100 mls/hr ONCE ONE Administration Morphine Sulfate 4 mg 11/14/24 21:43 11/14/24 22:30 Morphine Sulfate 4 Mg/Ml Cartridge IVPUSH 11/14/24 21:44 4 mg ONCE ONE Administration Protocol Ondansetron HCl 4 mg 11/14/24 21:44 11/14/24 22:30 Ondansetron Hcl 4 Mg/2 Ml Vial IVPUSH 11/14/24 21:45 4 mg ONCE ONE Administration Medical Decision Making Medical Decision Making [facility] Narrative: My interpretation of labs: At baseline hematology, at baseline anemia. Patient's chemistry does not show any acute abnormality, anion gap is closed, glucose is 320. Patient's lactic acid is 2.9. Of note, this is most likely secondary to polysubstance abuse and chronic liver issues. Sepsis is not suspected An x-ray of the foot which was done 2 days ago was suspicious for acute osteomyelitis of the 5th metatarsal Patient is currently receiving IV fluids, vanco and Zosyn, anxiolytics, antiemetics Patient received 5 units son fluids as above-mentioned for hyperglycemia I discussed the above-mentioned with our hospitalist Dr. Mcdonough, patient being admitted I was informed by the patient's nurse that the blood pressure dropped to the mid 80s. Patient is known to have used heroin and fentanyl, likely the source of hypotension. Sepsis is not suspected. Differential Diagnosis Differential Diagnoses: The differential diagnosis associated with the presentation includes (Cellulitis, osteomyelitis) Admission/Observation Consideration of admission/observation: Escalation of care including admission/observation considered Consult Healthcare Provider Management of the patient was discussed with: Hospitalist Lab Data MDM Lab Attestation statement: I reviewed the patient's lab results. 11/14/24 21:42 11/14/24 21:42 Labs: Lab Results 11/14/24 Range/Units 21:42 WBC 6.1 (4.8-10.8) X10*3/uL RBC 3.79 L (4.60-5.80) X10*6/uL Hgb 9.6 L (14.0-18.0) g/dl Hct 29.6 L (42.0-52.0) % MCV 78.1 L (80.0-98.0) fL MCH 25.3 L (27.0-33.0) pg MCHC 32.4 (31.0-36.0) g/dl RDW 14.2 (11.0-16.0) % Plt Count 592 H D (160-400) X10*3/uL MPV 8.8 L (9.4-12.4) fL Immature Gran % (Auto) 0.5 H (0.0-0.4) % Neut % (Auto) 54.8 (45-73) % Lymph % (Auto) 36.4 (20-40) % [place] % (Auto) 5.0 (2-11) % Eos % (Auto) 3.0 (0-4) % Baso % (Auto) 0.3 (0-2) % Lymph # (Auto) 2.2 (1.2-4.9) X10*3/uL [place] # (Auto) 0.3 (0.1-1.2) X10*3/uL Eos # (Auto) 0.2 (0.0-0.4) X10*3/uL Baso # (Auto) 0.0 (0.0-0.2) X10*3/uL Abs Immat Gran (auto) 0.03 (0.00-0.03) X10*3/uL Absolute Neuts (auto) 3.3 (2.0-8.3) x10*3/uL Absolute Nucleated RBC 0.000 (0.0-0.012) X10*3/uL Nucleated RBC % (auto) 0.0 (0.0-0.2) /100WBC Sodium 137 (135-145) mmol/L Potassium 4.3 (3.3-5.1) mmol/L Chloride 100 (96-108) mmol/L Carbon Dioxide 28 (22-29) mmol/L Anion Gap 13 (12-20) BUN 16 (9-16) mg/dL Creatinine 1.04 (0.5-1.4) mg/dL Estim Creat Clear Calc 91.7 Estimated GFR > 60 Random Glucose 320 H (60-115) mg/dL Lactic Acid 2.9 H* (0.5-2.0) mmol/L Calcium 9.2 (8.4-10.2) mg/dL Total Bilirubin 0.1 (0.0-1.0) mg/dL Direct Bilirubin < 0.2 (0.0-0.5) mg/dL AST 37 (5-37) U/L ALT 35 (0-40) U/L Alkaline Phosphatase 566 H (39-117) U/L Total Protein 6.7 (6.5-8.0) g/dL Albumin 3.1 L (3.5-5.0) g/dL Ethyl Alcohol 12 mg/dL Independent Interpretation I performed an independent interpretation of an: Plain X-Ray (x ray from 2 days ago) Radiology Impression Discussion of test interpretation with radiology: I have reviewed the radiologist's reading. Radiologist Impression: There is soft tissue lucency at the region of transmetatarsal forefoot amputation. The scattered soft tissue lucencies are most likely related to skin folds, but can not exclude draining sinus from osteomyelitis, correlate with clinical presentation. There is cortical bone destruction of the proximal 5th metatarsal post amputation remnant. There are also signs of bone destruction involving tibial side of the navicular bone medial cortex. No radiopaque foreign body. Critical Care Time Critical Care Time Critical Care Time: Yes Total Critical Care Time: 50 Attestation: I have personally provided critical care time. Time includes review of lab data, radiology results, discussion with consultants, and monitoring for potential decompensation. Intervention performed as documented. Discharge Plan Discharge Clinical Impression: Osteomyelitis, Acute hyperglycemia, Hypotension Patient Disposition: Admitted As Inpatient Print Language: Hungarian
[2024-11-14 22:08] LABS: Alanine Aminotransferase 35 U/L (0-40); Albumin Level 3.1 g/dL (3.5-5.0); Alkaline Phosphatase 566 U/L (39-117); Anion Gap 13 (12-20); Aspartate Amino Transferase 37 U/L (5-37); Blood Urea Nitrogen 16 mg/dL (9-16); Calcium 9.2 mg/dL (8.4-10.2); Carbon Dioxide 28 mmol/L (22-29); Chloride 100 mmol/L (96-108); Creatinine Clr Calc Pharmacy 91.7; Estimated Glomerular Filt Rate > 60; Potassium 4.3 mmol/L (3.3-5.1); Sodium 137 mmol/L (135-145); Total Protein 6.7 g/dL (6.5-8.0)
[2024-11-14] MEDS: diazePAM 10 MG/2 ML CARTRIDGE 2.5 MG IVPUSH (22:39)
[2024-11-14 22:47] VITALS: BP 89/52; PULSE 80; RESP 17; O2SAT 96
--- NOTE | 2024-11-14 23:36 | P.HPHOSP_ITS ---
History of Present Illness Date of Service: 11/14/24 Attending physician on admission: Donnie Grullon Chief Complaint: Left stump pain Patient is a 39-year-old male with past medical history substance use disorder previously on methadone as of 3 weeks prior currently using illicit drugs via IV, history of overdose requiring Narcan with no report of cardiac or respiratory arrest, peripheral vascular disease, IDDM1, MRSA infection, chronic osteomyelitis involving previous partial foot amputation, tobacco dependence return to the emergency room department today after leaving AMA on 11/12/2024 for this same complaint of left foot pain, drainage and redness. Patient states he has been self medicating with illicit drugs to help with his pain management. Patient states he is ready to remain in the hospital for treatment. Patient also notes that he is having chronic issues with constipation. Appetite has been fair. Imaging done on 11/12/2024 of the ankle and foot of the left leg indicated acute osteomyelitis. Specific for the ankle there is erosion and fragmentation of the proximal 5th metatarsal surgical remnant which has progressed compared to 06/09/2022 and is consistent with acute osteomyelitis. MRI has been recommended by radiologist but patient left AMA before this test could be ordered. Initially patient's blood pressure was 85/42 and patient was lethargic after receiving Valium and morphine. After receiving fluids and over time patient has become more alert awake and interactive. Blood pressure has improved to 94 over 56 with a map of 65. Patient has no leukocytosis with chronic anemia and a platelet count of 592K. Lactic acid initially 4.5 after bolus of fluid now 2.9 we will continue to monitor. Glucose on arrival 320 with no signs of DKA, noting anion gap is closed and CO2 is 28. Alkaline phosphatase 566 likely secondary to chronic osteomyelitis. Blood cultures x2 drawn and pending. Urine drug tox screen pending. Patient is started on vanco and Zosyn. Review of Systems 2 Review of Systems: Patient currently denies any chest pain or shortness of breath at rest. Patient continues to have chronic pain in the left lower extremity with now drainage and redness. Patient states on the 12 of November he felt like he may have pulled pulled out a piece of bone from the left lower extremity. Patient states he last used illicit drugs yesterday. Patient has been off methadone for 3 weeks now. Patient also dealing with chronic constipation. [facility]LY [facility] Medical History History of MRSA infection Chronic osteomyelitis of left foot Tobacco use disorder Polysubstance (including opioids) dependence, daily use Diabetes type I Cognitive capacity: Alert and orientated x3 Functional capacity: uses cane/walker Surgical History S/P debridement (02/28/22) History of foot surgery Hx of surgical amputation of finger History of transmetatarsal amputation of left foot Social History Household Members Other:: Lives in basement of [facility] House Are you a primary childcare administrator to a significant other at home: No Comment: requests crutches Patient Tobacco Use Status: Current everyday Tobacco user Tobacco use type: Cigarette Cigarette Packs Per Day: 0.75 Cigarettes Per Day: 15.0 Years Smoked: ~ 20 Smoked in Last 30 Days: Yes Use of substances other than those prescribed or required for medical reasons: Yes Substance Use Type: Heroin Substance Use Frequency: Daily Last Used Substance: Just Prior to Admission Advance Directives: No Advance Directives Information Provided: No Ebola Risk: Travel/Contact With Anyone From Affected Area/s: No Has Patient Experienced Ebola Symptoms: No Meds Allergies Allergy/AdvReac Type Severity Reaction Status Date / Time cephalexin (From Keflex) Allergy Vomiting Verified 11/14/24 20:30 Active Medications: Current Medications Vancomycin HCl 1,000 mg/Vancomycin HCl 750 mg/ Sodium Chloride 535 mls @ 267.5 mls/hr IV ONCE ONE Stop: 11/14/24 23:42 Sodium Chloride (Ns) 2,000 mls @ 999 mls/hr IVCONT .Q2H1M ONE Stop: 11/15/24 01:01 Last Admin: 11/14/24 23:04 Dose: 999 mls/hr Sodium Chloride (Ns) 1,000 mls @ 999 mls/hr IV .Q1H1M KEREN Stop: 11/15/24 01:15 Home Medications ?Medication ?Instructions ?Recorded ?Confirmed ?Last Taken ?Type insulin lispro 100 unit/mL See Protocol subcut TIDWM 0 02/17/22 11/12/24 Unknown History subcutaneous pen (Humalog KwikPen (U-100) Insulin) insulin glargine 100 unit/mL (3 45 unit subcut DAILY 0 11/12/24 11/12/24 11/12/24 History mL) subcutaneous pen (Basaglar KwikPen U-100 Insulin) Physical Exam 2 Vital Signs and Narrative: Vital Signs: Last Vital Signs Temp 98.2 F 11/14/24 21:54 Pulse 80 11/14/24 22:47 Resp 17 11/14/24 22:47 BP 89/52 L 11/14/24 22:47 Pulse Ox 96 11/14/24 22:47 O2 Del Method Room Air 11/14/24 22:47 BMI result Body Mass Index 21.5 Alert and orientated X3, groggy more so than lethargic or somnolent able to history. Neuro: CN II-X11 intact, no deficits, visual acuity intact EYES: Pupils constricted 1 mm, sclerae nonicteric, conjunctiva pink ENT: hearing intact, no issues with swallowing, uvula midline, lips moist, nares patent no epistaxis Cardiac: S1 S2 RRR, no murmur, no JVD, no edema in Lower ext Pulmonary: lungs diminished bilaterally Abdominal: BS active in all 4 quadrants, no guarding, tenderness, rebounding, noted distention and fullness MSK: strength 4/5 upper and lower extremities : no CVA tenderness no bladder distension Extremities: Mild edema in lower extremities, patient has track morrison on right upper extremity Psych: mood stable to agitated, judgement and insight fair Skin: Opening noted lateral front area of the stump involving the left side, on November 12 patient thought he pulled out a piece of bone or some kind of material Results Labs 11/14/24 21:42 11/14/24 21:42 Labs: Laboratory Results - last 24 hr 11/14/24 21:42 MCV 78.1 L MCH 25.3 L MCHC 32.4 RDW 14.2 Plt Count 592 H D MPV 8.8 L Immature Gran % (Auto) 0.5 H Neut % (Auto) 54.8 Lymph % (Auto) 36.4 [place] % (Auto) 5.0 Eos % (Auto) 3.0 Baso % (Auto) 0.3 Lymph # (Auto) 2.2 [place] # (Auto) 0.3 Eos # (Auto) 0.2 Baso # (Auto) 0.0 Abs Immat Gran (auto) 0.03 Absolute Neuts (auto) 3.3 Absolute Nucleated RBC 0.000 Nucleated RBC % (auto) 0.0 Anion Gap 13 Estim Creat Clear Calc 91.7 Estimated GFR > 60 Random Glucose 320 H Lactic Acid 2.9 H* Calcium 9.2 Total Bilirubin 0.1 Direct Bilirubin < 0.2 AST 37 ALT 35 Alkaline Phosphatase 566 H Total Protein 6.7 Albumin 3.1 L Ethyl Alcohol 12 Assessment and Plan (1) Osteomyelitis: Qualifiers: Osteomyelitis type: other Osteomyelitis location: foot Laterality: l eft Qualified Code(s): M86.8X7 - Other osteomyelitis, ankle and foot Status: Acute (2) Acute hyperglycemia: Status: Acute Plan Patient is a 39-year-old male with past medical history substance use disorder previously on methadone as of 3 weeks prior currently using illicit drugs via IV, history of overdose requiring Narcan with no report of cardiac or respiratory arrest, peripheral vascular disease, IDDM1, MRSA infection, chronic osteomyelitis involving previous partial foot amputation, tobacco dependence return to the emergency room department today after leaving [place] on 11/12/2024 for this same complaint of left foot pain, drainage and redness. Patient agreeable to admission for osteomyelitis. Initially after receiving Valium and morphine, blood pressure was running low and patient was lethargic. Since receiving fluids and over time patient more responsive and at his baseline with a blood pressure in the 90s with a map of 65. Note that hypotension noted 21:54 nd 22:47 is secondary to sedation and pain medication. No longer tachycardic (highest 102 BPM). Pt does have an elevated LA but this is trending down with fluids. Pt has no leukocytosis, fever. Pt does not consistently meet sepsis criteria upon admission. Sepsis was not suspected in the ED. Acute Osteomyelitis left lower extremity involving 5th metatarsal with the acute lactic acidosis Patient is started on vancomycin and Zosyn Lactic acid trending down with IVF and treatment Infectious disease consulted Wound care consultation ordered Pain management in place MRI ordered as recommended by radiologist for definitive diagnostic information General surgery consulted Blood cultures x2 pending Hyperglycemia with known diabetes type 1 No evidence of DKA as anion gap is closed and CO2 is normal Patient received 5 units of regular insulin in the ED Sliding scale coverage ordered Will continue Lantus 45 units as prescribed Diabetic diet Substance use disorder/ IVDA Urine drug screen pending Testing for hepatitis and HIV ordered Patient last used IV drugs yesterday Patient denies history of endocarditis, no murmur on exam: No history of echocardiogram we will check to rule out vegetation Addictions consulted, patient would like to go back on methadone. Has not had methadone in over 3 weeks. COWS ordered, Valium PRN with parameters Constipation Chronic in presentation KUB ordered Bowel regimen updated Hydration encouraged DVT prophylaxis: lovenox MED REC PENDING FULL CODE Quality Stroke Does the patient have a stroke diagnosis?: No Reason for No Anti-thrombotic by Day Two: N/A - Med Ordered VTE Prior VTE?: No VTE Risk Level:: Medical - moderate - high VTE Device Contraindication: N/A - Device Ordered VTE Drug Contraindication: N/A - Med Ordered
[2024-11-14 23:46] LABS: Reflex Lactate? Lactic Acid Added
[2024-11-14 23:48] LABS: VBG HCO3 34 mmol/L (22-26); VBG O2 % Saturation 57.0 %
[2024-11-14 23:49] LABS: Venous Blood Gas Refer to POC result
--- NOTE | 2024-11-14 23:55 | PC.NURSE ---
Provider into places a second line, pt to be dis-respectful, pt being aggressive, verbalized abusive. Security notified and charge nurse.
[2024-11-14 23:58] VITALS: PULSE 75
[2024-11-15] VITALS (7 sets, daily range): BP systolic 98–155; BP diastolic 61–81; PULSE 72–83; RESP 14–20; TEMP 36.7–37.1; O2SAT 97–98
--- NOTE | 2024-11-15 00:01 | PC.NURSE ---
Second line place by patricia espinal, pt had a second line removed. Pharmacy called regarding Vanco not being hung, Will hand as soon as possible.
--- NOTE | 2024-11-15 00:09 | PC.NURSE ---
Pt transferred to [facility].
--- NOTE | 2024-11-15 00:15 | PC.NURSE ---
Pt yelling at the primary RN and YARA Membreno about ultrasound guided IV line. Line patent and able to draw back without difficulty. patient cursing and yelling at industrial security analyst called RN removed herself from room. Patient continues to curse that his IV line hurt and wanted to leave AMA. in the room to see patient and patient is agreeable at this time to stay but wants the IV removed. Pt has #22 R-shoulder. Limited IV access is making it difficult to administer all the abx and fluids patient needs. pt still very upset. Pt moved to a different room after also discussing with patient that he can not treat or talk to staff the way he was. Security also discussed this behavior with patient.
[2024-11-15] MEDS: vancomycin HCL 1,000 MG, vancomycin HCL 750 MG in 0.9 % Sodium Chloride 500 ML 267.5 MG IV (00:21)
[2024-11-15 00:26] LABS: ~Lactic Acid-LAB USE ONLY 1.7 mmol/L (0.5-2.0)
[2024-11-15 00:26] LABS: Glucose, Whole Blood 199 mg/dL (60-115)
[2024-11-15 06:29] LABS: MANUAL DIFF FLAG NO
--- NOTE | 2024-11-15 06:29 | PC.NURSE ---
PT medicated as per MAR. IV intact and patient COWS 2 pt refusing tele monitoring PT is aware we are still in need of a urine sample
[2024-11-15 06:33] LABS: Hematocrit 27.0 % (42.0-52.0); Hemoglobin 8.5 g/dl (14.0-18.0); Imm Gran Abs Auto 0.03 X10*3/uL (0.00-0.03); Imm Gran Pct Auto 0.4 % (0.0-0.4); Lymphocytes Absolute Auto 2.2 X10*3/uL (1.2-4.9); Mean Corpuscular HGB Conc 31.5 g/dl (31.0-36.0); Mean Corpuscular Hemoglobin 25.2 pg (27.0-33.0); Mean Corpuscular Volume 80.1 fL (80.0-98.0); NRBC Abs Auto 0.000 X10*3/uL (0.0-0.012); NRBC Pct Auto 0.0 /100WBC (0.0-0.2); Platelet Count 394 X10*3/uL (160-400); Red Blood Count 3.37 X10*6/uL (4.60-5.80); White Blood Count 6.7 X10*3/uL (4.8-10.8)
[2024-11-15 06:52] LABS: Alanine Aminotransferase 29 U/L (0-40); Albumin Level 2.7 g/dL (3.5-5.0); Alkaline Phosphatase 476 U/L (39-117); Anion Gap 9 (12-20); Aspartate Amino Transferase 34 U/L (5-37); Blood Urea Nitrogen 15 mg/dL (9-16); Carbon Dioxide 26 mmol/L (22-29); Chloride 108 mmol/L (96-108); Creatinine Clr Calc Pharmacy 86.7; Estimated Glomerular Filt Rate > 60; Potassium 4.2 mmol/L (3.3-5.1); Sodium 139 mmol/L (135-145); Total Protein 5.7 g/dL (6.5-8.0)
[2024-11-15 07:01] LABS: Calcium 8.3 mg/dL (8.4-10.2)
[2024-11-15 07:09] LABS: HBS Num1 2.31 mIU/mL (0-7.99); HBc Num1 0.04 S/CO (0.00-0.79); HBsAGNum1 0.27 S/CO (0.00-0.99); HIV Num 1 0.06 S/CO (0.00-0.99); Hepatitis A Antibody IgM 0.27 Index (0-0.79); Hepatitis B Surface Antigen Negative (Negative); ~HepC Num1 0.09 S/CO (0.00-0.79); ~Hepatitis A Antibody IgM Nonreactive (Nonreactive); ~Hepatitis B Surface Antibody NONREACTIVE (Nonreactive); ~Hepatitis C Antibody Nonreactive (Nonreactive)
--- NOTE | 2024-11-15 08:32 | HO.PM.IMPN ---
Subjective Subjective Date of Service: 11/15/24 Review of Systems Review of Systems: Yes all other systems are reviewed and are negative Physical Exam Vital Signs: Vital Signs: Last Vital Signs Temp 98.2 F 11/15/24 06:27 Pulse 75 11/15/24 06:27 Resp 14 11/15/24 06:27 BP 98/61 11/15/24 06:27 Pulse Ox 97 11/15/24 06:27 O2 Del Method Room Air 11/15/24 06:27 BMI result Body Mass Index 21.5 Objective Data Active Medications Acetaminophen (Acetaminophen 325 Mg Tablet) 650 mg PO Q6H PRN PRN Reason: Pain, Mild 1-3,fever,headache Albuterol/Ipratropium (Albuterol/Iprat 2.5/0.5mg 3 Ml Ampul.Neb) 3 ml INHALE Q4H PRN PRN Reason: Shortness of Breath/Wheezing Bisacodyl (Bisacodyl 10 Mg Supp.Rect) 10 mg OK BEDTIME PRN PRN Reason: Constipation Calcium Carbonate (Calcium Carbonate 750 Mg Tab.Chew) 750 mg PO Q4H PRN PRN Reason: Heartburn Diazepam (Diazepam 10 Mg/2 Ml Cartridge) 5 mg IVPUSH Q6H PRN PRN Reason: Opiate Withdrawal Enoxaparin Sodium (Enoxaparin Sodium 40 Mg/0.4 Ml Syringe) 40 mg SUBCUT 2200 [facility] Last Admin: 11/15/24 00:59 Dose: Not Given Documented By: EVA Non-Admin Reason: Patient Refused Piperacillin Sod/Tazobactam (Sod 4.5 gm/ Sodium Chloride) 100 mls @ 200 mls/hr IV Q6H [facility] Last Infusion: 11/15/24 07:17 Dose: Infused Documented By: MANINDER Vancomycin HCl 1,000 mg/ (Sodium Chloride) 270 mls @ 270 mls/hr IV Q12H [facility] Insulin Glargine (Insulin Glargine,Hum.Rec.Anlog 100 Unit/Ml 10 Ml Vial) 45 unit SUBCUT BEDTIME [facility] Last Admin: 11/15/24 00:59 Dose: Not Given Documented By: EVA Non-Admin Reason: Patient Refused Magnesium Hydroxide (Milk Of Magnesia 30 Ml Oral.Susp) 30 ml PO DAILY PRN PRN Reason: Constipation Melatonin (Melatonin 3 Mg Tablet) 6 mg PO BEDTIME PRN PRN Reason: Insomnia Morphine Sulfate (Morphine Sulfate 2 Mg/Ml Cartridge) 2 mg IVPUSH Q4H PRN; Protocol PRN Reason: Pain, Severe (Pain Scale 7-10) Last Admin: 11/15/24 01:08 Dose: 2 mg Documented By: EVA Ondansetron HCl (Ondansetron Hcl 4 Mg/2 Ml Vial) 4 mg IVPUSH Q8H PRN PRN Reason: Nausea and Vomiting Last Admin: 11/15/24 01:03 Dose: 4 mg Documented By: EVA Oxycodone HCl (Oxycodone Hcl Immed Release 5 Mg Tablet) 5 mg PO Q4H PRN PRN Reason: Pain, Moderate(Pain Scale 4-6) Pharmacy Consult (Consult Rx Vancomycin Dosing) 1 each MISCELLANE DAILY PRN PRN Reason: Consult order Polyethylene Glycol (Polyethylene Glycol 3350 17 Gm Powd.Pack) 17 gm PO DAILY KEREN Senna (Sennosides 8.6 Mg Tablet) 17.2 mg PO BEDTIME KEREN Sodium Chloride (0.9 % Sodium Chloride Flush 3 Ml Syringe) 3 ml IVFLUSH QSHIFT KEREN Last Admin: 11/15/24 07:16 Dose: Not Given Documented By: MANINDER Non-Admin Reason: IV Running Labs 11/15/24 06:14 11/15/24 06:14 Labs: Laboratory Results - last 24 hr 11/14/24 11/14/24 11/15/24 21:42 23:43 00:07 MCV 78.1 L MCH 25.3 L MCHC 32.4 RDW 14.2 Plt Count 592 H D MPV 8.8 L Immature Gran % (Auto) 0.5 H Neut % (Auto) 54.8 Lymph % (Auto) 36.4 Andrews % (Auto) 5.0 Eos % (Auto) 3.0 Baso % (Auto) 0.3 Lymph # (Auto) 2.2 Andrews # (Auto) 0.3 Eos # (Auto) 0.2 Baso # (Auto) 0.0 Abs Immat Gran (auto) 0.03 Absolute Neuts (auto) 3.3 Absolute Nucleated RBC 0.000 Nucleated RBC % (auto) 0.0 VBG pH 7.37 VBG pCO2 59 VBG pO2 38 VBG HCO3 34 H VBG O2 Saturation 57.0 VBG Base Excess 8.4 Anion Gap 13 Estim Creat Clear Calc 91.7 Estimated GFR > 60 POC Glucose Random Glucose 320 H Lactic Acid 2.9 H* Lactic Acid F/U @ 2Hr 1.7 Calcium 9.2 Total Bilirubin 0.1 Direct Bilirubin < 0.2 AST 37 ALT 35 Alkaline Phosphatase 566 H Total Protein 6.7 Albumin 3.1 L Ethyl Alcohol 12 Hepatitis A IgM Ab Hep Bs Antigen Hep Bs Antibody Hep B Core Total Ab Hepatitis C Ab (EIA) HIV 1&2 Ab/P24 Ag 4thGn 11/15/24 11/15/24 00:13 06:14 MCV 80.1 MCH 25.2 L MCHC 31.5 RDW 14.2 Plt Count 394 D MPV 10.3 Immature Gran % (Auto) 0.4 Neut % (Auto) 58.8 Lymph % (Auto) 33.5 Andrews % (Auto) 4.8 Eos % (Auto) 2.4 Baso % (Auto) 0.1 Lymph # (Auto) 2.2 Andrews # (Auto) 0.3 Eos # (Auto) 0.2 Baso # (Auto) 0.0 Abs Immat Gran (auto) 0.03 Absolute Neuts (auto) 3.9 Absolute Nucleated RBC 0.000 Nucleated RBC % (auto) 0.0 VBG pH VBG pCO2 VBG pO2 VBG HCO3 VBG O2 Saturation VBG Base Excess Anion Gap 9 L Estim Creat Clear Calc 86.7 Estimated GFR > 60 POC Glucose 199 H Random Glucose 185 H Lactic Acid Lactic Acid F/U @ 2Hr Calcium 8.3 L D Total Bilirubin 0.1 Direct Bilirubin AST 34 ALT 29 Alkaline Phosphatase 476 H Total Protein 5.7 L Albumin 2.7 L Ethyl Alcohol Hepatitis A IgM Ab Nonreactive Hep Bs Antigen Negative Hep Bs Antibody NONREACTIVE Hep B Core Total Ab Nonreactive Hepatitis C Ab (EIA) Nonreactive HIV 1&2 Ab/P24 Ag 4thGn Nonreactive Assessment and Plan Plan 39-year-old male with past medical history substance use disorder previously on methadone as of 3 weeks prior currently using illicit drugs via IV, history of overdose requiring Narcan with no report of cardiac or respiratory arrest, peripheral vascular disease, IDDM1, MRSA infection, chronic osteomyelitis involving previous partial foot amputation, tobacco dependence return to the emergency room department today after leaving AMA on 11/12/2024 for this same complaint of left foot pain, drainage and redness. Patient agreeable to admission for osteomyelitis. Initially after receiving Valium and morphine, blood pressure was running low and patient was lethargic. Since receiving fluids and over time patient more responsive and at his baseline with a blood pressure in the 90s with a map of 65. Note that hypotension noted 21:54 nd 22:47 is secondary to sedation and pain medication. No longer tachycardic (highest 102 BPM). Pt does have an elevated LA but this is trending down with fluids. Pt has no leukocytosis, fever. Pt does not consistently meet sepsis criteria upon admission. Sepsis was not suspected in the ED. Acute Osteomyelitis left lower extremity involving 5th metatarsal with the acute lactic acidosis Patient is started on vancomycin and Zosyn Lactic acid trending down with IVF and treatment Infectious disease consulted Wound care consultation ordered Pain management in place General surgery consulted Blood cultures x2 pending Hyperglycemia with known diabetes type 1 No evidence of DKA as anion gap is closed and CO2 is normal Patient received 5 units of regular insulin in the ED Sliding scale coverage ordered Will continue Lantus 45 units as prescribed Diabetic diet Substance use disorder/ IVDA Urine drug screen pending Testing for hepatitis and HIV ordered Patient last used IV drugs yesterday Patient denies history of endocarditis, no murmur on exam: No history of echocardiogram we will check to rule out vegetation Addictions consulted, patient would like to go back on methadone. Has not had methadone in over 3 weeks. COWS ordered, Valium PRN with parameters Constipation Chronic in presentation Bowel regimen updated Hydration encouraged DVT prophylaxis: Allani Quality Stroke Does the patient have a stroke diagnosis?: No Reason for No Anti-thrombotic by Day Two: N/A - Med Ordered VTE Prior VTE?: No VTE Risk Level:: Medical - moderate - high VTE Device Contraindication: N/A - Device Ordered VTE Drug Contraindication: N/A - Med Ordered
--- NOTE | 2024-11-15 08:43 | PC.NURSE ---
patient refused xray to be completed at this time. pt educated on importance but still refused. admitting provider notified/aware.
--- NOTE | 2024-11-15 09:13 | PC.NURSE ---
pt reporting increased pain to left foot - requesting medication. prn medication utilized. effectiveness pending. otherwise, vss and up to date. pt still refusing to be placed on telemetry despite admission orders. pt educated on importance but still refusing. pt otherwise on RA w/o difficulty - no sob/wob noted. respirations even/unlabored. pending bed assignment. plan of care ongoing. call carrillo placed within reach.
--- NOTE | 2024-11-15 10:09 | HO.NURTONUR ---
a&ox4. vss and up to date. refusing telemetry. on RA baseline as well as currently w/o difficulty - no sob/wob noted. respirations even/unlabored. diabetic diet - no sliding scale. swallows pills whole w/o difficulty. wheelchair baseline. uses urinal independently. 22gIV in the RUE - patent/intact - nothing currently infusing. hx substance use, IVDU, recently taken off methadone in the past 3 weeks, MRSA, chronic osteomyelitis. 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 unable to properly visualize as patient is not compliant w/ care and refusing physical examinations/assessments. pt originally came to the ED/was admitted for osteomyelitis and left AMA. pt represents c/o worsening pain, redness, drainage to LLE. pt reporting using IVDU (unknown substance) to decrease pain w/o relief. pt was hypotensive and hyperglycemic (w/o DKA) upon ED arrival. pt received IVF boluses and 5units regular insulin w/ relief. pt otherwise has chronic constipation - on bowel regimen - commode bedside. pt otherwise not compliant w/ care - refusing telemetry, vitals, drug screens, xrays to be completed and assessments. hospitalist aware of all refusals. pt receiving IV abx. pending echocardiogram, addiction medicine/general surgery/infectious diseases/wound care consults.
--- NOTE | 2024-11-15 11:24 | PHA.MEDREC ---
Pharmacy Consult ? Medication Reconciliation Pharmacy has completed the medication reconciliation. Tried to talk to patient twice but he was unarousable. Called and spoke to significant other Kalyn Man [phone] who confirmed patient uses humalog and basaglar/lantus (he alternates between basaglar and lantus, depending on what the pharmacy dispenses to him). She said he takes 35-45 units of lantus daily in the morning. He's having trouble with the insurance covering dexcom and he doesn't have a glucometer to test his sugar so he has been administering the humalog according to how he feels (dizziness etc). She doesn't know the sliding scale that he uses, only knows that the upper limit of the humalog is about 15-20 units.
--- NOTE | 2024-11-15 11:24 | PC.NURSE ---
Upon meeting pt this shift and attempting to administer methadone dose, pt states I don't fucking want that, you guys aren't doing anything to help. My foot needs to be removed. Pt stating he would like to be discharged since we are not 'cutting off his foot'. Dr. Johnson aware, recommended reaching out to general surgery for consult. Pt currently refusing vitals and assessment. RN explained plan of care to patient, explained necessity of IV abx, pain control, and bowel regimen. Pt refusing teaching. aware, awaiting consult, care ongoing.
--- NOTE | 2024-11-15 11:28 | MHC.CM.PN ---
CM attempted X2 to meet with Patient at bedside, in the ED, but he did not awaken to his name. From Chart review, Patient left [facility] yesterday, AMA. Patient was previously was on Methadone and now IVDA. Patient may benefit from a Recovery Team Consult to assist with disposition; CM has initiated and will follow for dc planning. PCP is Dr. Kenney Larsen.CM is unsure of Patient's living situation.
--- NOTE | 2024-11-15 13:24 | P.CONGS_ITS ---
History of Present Illness Consult details Consult date: 11/15/24 <Osito Christianson PA-C - Last Filed: 11/15/24 13:46> Reason for consult: other (Osteomyelitis of left 5th metatarsal) <Osito Christianson PA-C - Last Filed: 11/15/24 13:46> Narrative: 39 year old male with a history of T1DM, polysubstance abuse, left TMA secondary to osteomyelitis, seen in consult for osteomyelitis of the left fifth metatarsal fragment. Patient was minimally responsive during 2 attempts to evaluate. Was able to inform us that this has been going on for months. He complained of pain, only in the foot. Shrugged his shoulders when asked if the wound was draining and if he kept a dressing on at home. <Osito Christianson PA-C - Last Filed: 11/15/24 13:46> PMFSH Past Medical History Medical History: Medical History History of MRSA infection Chronic osteomyelitis of left foot Tobacco use disorder Polysubstance (including opioids) dependence, daily use Diabetes type I <JULIO Schmitt Last Filed: 11/15/24 13:46> Surgical History Surgical History: Surgical History S/P debridement (02/28/22) History of foot surgery Hx of surgical amputation of finger History of transmetatarsal amputation of left foot <JULIO Schmitt Last Filed: 11/15/24 13:46> Social History Social History: Social History Household Members Other:: Lives in basement of [facility] Are you a primary behavioral health care coordinator to a significant other at home: No Comment: requests crutches Patient Tobacco Use Status: Current everyday Tobacco user Tobacco use type: Cigarette Cigarette Packs Per Day: 0.75 Cigarettes Per Day: 15.0 Years Smoked: ~ 20 Smoked in Last 30 Days: Yes Use of substances other than those prescribed or required for medical reasons: Yes Substance Use Type: Heroin Substance Use Frequency: Daily Last Used Substance: Just Prior to Admission Advance Directives: No Advance Directives Information Provided: No service: No <Osito Christianson PA-C - Last Filed: 11/15/24 13:46> Travel History Ebola Risk: Travel/Contact With Anyone From Affected Area/s: No <Osito Christianson PA-C - Last Filed: 11/15/24 13:46> Has Patient Experienced Ebola Symptoms: No <Osito Christianson PA-C - Last Filed: 11/15/24 13:46> Meds Allergies/Adverse reactions: Allergies Allergy/AdvReac Type Severity Reaction Status Date / Time cephalexin (From [facility]) Allergy Vomiting Verified 11/14/24 20:30 <Osito Christianson PA-C - Last Filed: 11/15/24 13:46> Active Medications: Current Medications Acetaminophen (Acetaminophen 325 Mg Tablet) 650 mg PO Q6H PRN PRN Reason: Pain, Mild 1-3,fever,headache Albuterol/Ipratropium (Albuterol/Iprat 2.5/0.5mg 3 Ml Ampul.Neb) 3 ml INHALE Q4H PRN PRN Reason: Shortness of Breath/Wheezing Bisacodyl (Bisacodyl 10 Mg Supp.Rect) 10 mg DE BEDTIME PRN PRN Reason: Constipation Calcium Carbonate (Calcium Carbonate 750 Mg Tab.Chew) 750 mg PO Q4H PRN PRN Reason: Heartburn Diazepam (Diazepam 10 Mg/2 Ml Cartridge) 5 mg IVPUSH Q6H PRN PRN Reason: Opiate Withdrawal Enoxaparin Sodium (Enoxaparin Sodium 40 Mg/0.4 Ml Syringe) 40 mg SUBCUT 2200 [facility] Last Admin: 11/15/24 00:59 Dose: Not Given Piperacillin Sod/Tazobactam (Sod 4.5 gm/ Sodium Chloride) 100 mls @ 200 mls/hr IV Q6H [facility] Last Infusion: 11/15/24 07:17 Dose: Infused Vancomycin HCl 1,000 mg/ (Sodium Chloride) 270 mls @ 270 mls/hr IV Q12H [facility] Insulin Glargine (Insulin Glargine,Hum.Rec.Anlog 100 Unit/Ml 10 Ml Vial) 45 unit SUBCUT BEDTIME [facility] Last Admin: 11/15/24 00:59 Dose: Not Given Magnesium Hydroxide (Milk Of Magnesia 30 Ml Oral.Susp) 30 ml PO DAILY PRN PRN Reason: Constipation Melatonin (Melatonin 3 Mg Tablet) 6 mg PO BEDTIME PRN PRN Reason: Insomnia Morphine Sulfate (Morphine Sulfate 2 Mg/Ml Cartridge) 2 mg IVPUSH Q4H PRN; Protocol PRN Reason: Pain, Severe (Pain Scale 7-10) Last Admin: 11/15/24 09:10 Dose: 2 mg Ondansetron HCl (Ondansetron Hcl 4 Mg/2 Ml Vial) 4 mg IVPUSH Q8H PRN PRN Reason: Nausea and Vomiting Last Admin: 11/15/24 01:03 Dose: 4 mg Oxycodone HCl (Oxycodone Hcl Immed Release 5 Mg Tablet) 5 mg PO Q4H PRN PRN Reason: Pain, Moderate(Pain Scale 4-6) Pharmacy Consult (Consult Rx Vancomycin Dosing) 1 each MISCELLANE DAILY PRN PRN Reason: Consult order Polyethylene Glycol (Polyethylene Glycol 3350 17 Gm Powd.Pack) 17 gm PO DAILY KEREN Last Admin: 11/15/24 09:10 Dose: 17 gm Senna (Sennosides 8.6 Mg Tablet) 17.2 mg PO BEDTIME KEREN Sodium Chloride (0.9 % Sodium Chloride Flush 3 Ml Syringe) 3 ml IVFLUSH QSHIFT KEREN Last Admin: 11/15/24 07:16 Dose: Not Given <JULIO Schmitt Last Filed: 11/15/24 13:46> Home medications: Home Medications ?Medication ?Instructions ?Recorded ?Confirmed ?Last Taken ?Type insulin lispro 100 unit/mL See Protocol subcut DAILY P RN 02/17/22 11/15/24 Unknown History subcutaneous pen (Humalog KwikPen Hyperglycemia (U-100) Insulin) insulin glargine 100 unit/mL (3 35 unit subcut DAILY 0 11/12/24 11/15/24 11/14/24 History mL) subcutaneous pen (Basaglar KwikPen U-100 Insulin) <JULIO Schmitt Last Filed: 11/15/24 13:46> Physical Exam 2 Vital Signs: Vital Signs: Last Vital Signs Temp 98.1 F 11/15/24 09:09 Pulse 72 11/15/24 09:09 Resp 16 11/15/24 09:09 BP 155/81 H 11/15/24 09:09 Pulse Ox 98 11/15/24 09:09 O2 Del Method Room Air 10/03/25 09:09 BMI result Body Mass Index 21.5 <JULIO Schmitt Last Filed: 11/15/24 13:46> Const: Other: sleeping during exam, minimally responsive <JULIO Schmitt Last Filed: 11/15/24 13:46> Resp: Effort & Inspection: normal respiratory effort <JULIO Schmitt Last Filed: 11/15/24 13:46> Extrem: Other: Left foot: TMA present. small 1 cm open wound on the plantar aspect, scant drainage. Cellulitis on the plantar aspect, appears improved compared to previous marking. Exquisitely tender <JULIO Schmitt Last Filed: 11/15/24 13:46> Results Labs Result diagrams: 11/15/24 06:14 11/15/24 06:14 <JULIO Schmitt Last Filed: 11/15/24 13:46> Labs: Abnormal lab results 11/14/24 11/14/24 11/15/24 Range/Units 21:42 23:43 00:13 RBC 3.79 L (4.60-5.80) X10*6/uL Hgb 9.6 L (14.0-18.0) g/dl Hct 29.6 L (42.0-52.0) % MCV 78.1 L (80.0-98.0) fL MCH 25.3 L (27.0-33.0) pg Plt Count 592 H D (160-400) X10*3/uL MPV 8.8 L (9.4-12.4) fL Immature Gran % (Auto) 0.5 H (0.0-0.4) % VBG HCO3 34 H (22-26) mmol/L Anion Gap (12-20) POC Glucose 199 H (60-115) mg/dL Random Glucose 320 H (60-115) mg/dL Lactic Acid 2.9 H* (0.5-2.0) mmol/L Calcium (8.4-10.2) mg/dL Alkaline Phosphatase 566 H (39-117) U/L Total Protein (6.5-8.0) g/dL Albumin 3.1 L (3.5-5.0) g/dL 11/15/24 Range/Units 06:14 RBC 3.37 L (4.60-5.80) X10*6/uL Hgb 8.5 L (14.0-18.0) g/dl Hct 27.0 L (42.0-52.0) % MCV (80.0-98.0) fL MCH 25.2 L (27.0-33.0) pg Plt Count (160-400) X10*3/uL MPV (9.4-12.4) fL Immature Gran % (Auto) (0.0-0.4) % VBG HCO3 (22-26) mmol/L Anion Gap 9 L (12-20) POC Glucose (60-115) mg/dL Random Glucose 185 H (60-115) mg/dL Lactic Acid (0.5-2.0) mmol/L Calcium 8.3 L D (8.4-10.2) mg/dL Alkaline Phosphatase 476 H (39-117) U/L Total Protein 5.7 L (6.5-8.0) g/dL Albumin 2.7 L (3.5-5.0) g/dL Short CBC 11/14/24 11/15/24 Range/Units 21:42 06:14 WBC 6.1 6.7 (4.8-10.8) X10*3/uL Hgb 9.6 L 8.5 L (14.0-18.0) g/dl Hct 29.6 L 27.0 L (42.0-52.0) % Plt Count 592 H D 394 D (160-400) X10*3/uL BMP 11/14/24 11/15/24 21:42 06:14 Sodium 137 139 Potassium 4.3 4.2 Chloride 100 108 Carbon Dioxide 28 26 BUN 16 15 Creatinine 1.04 1.10 Calcium 9.2 8.3 L D Liver Function 11/14/24 11/15/24 Range/Units 21:42 06:14 Total Bilirubin 0.1 0.1 (0.0-1.0) mg/dL Direct Bilirubin < 0.2 (0.0-0.5) mg/dL AST 37 34 (5-37) U/L ALT 35 29 (0-40) U/L Alkaline Phosphatase 566 H 476 H (39-117) U/L Albumin 3.1 L 2.7 L (3.5-5.0) g/dL All other labs normal. <Osito Christianson PA-C - Last Filed: 11/15/24 13:46> Assessment and Plan (1) Chronic osteomyelitis of left foot: Status: Acute <Osito Christianson PA-C - Last Filed: 11/15/24 13:46> 39 year old male with a history of T1DM, polysubstance abuse, left TMA secondary to osteomyelitis, seen in consult for osteomyelitis of the left fifth metatarsal fragment. Patient was minimally responsive during 2 attempts to evaluate. This has been worsening for months per patient, causing him more pain. I reviewed imaging from 11/12 which was suggestive of osteomyelitis of the remaining 5th metatarsal Foot does have a small open wound on the lateral plantar aspect of the foot that appears to drain fluid. I was unable to express any fluid, patient did not tolerate any palpation of the wound. The cellulitis of the foot does look improved from the markings from ED evaluation. At this point i dont think that he needs debridement, and given his living situation, pt is homeless, and has left AMA previously. I dont think he is a good surgical candidate. Would recommend IV abx per ID recommendations, daily wound care while admitted. Wound consult appreciated. <Osito Christianson PA-C - Last Filed: 11/15/24 13:46> 39 year old male with a history of T1DM, polysubstance abuse, left TMA secondary to osteomyelitis, seen in consult for osteomyelitis of the left fifth metatarsal fragment. Patient was minimally responsive during 2 attempts to evaluate. This has been worsening for months per patient, causing him more pain. I reviewed imaging from 11/12 which was suggestive of osteomyelitis of the remaining 5th metatarsal Foot does have a small open wound on the lateral plantar aspect of the foot that appears to drain fluid. I was unable to express any fluid, patient did not tolerate any palpation of the wound. The cellulitis of the foot does look improved from the markings from ED evaluation. At this point i dont think that he needs debridement, and given his living situation, pt is homeless, and has left AMA previously. I dont think he is a good surgical candidate. Would recommend IV abx per ID recommendations, daily wound care while admitted. Wound consult appreciated. Patient is seen and examined independently agree with the note above patient has had issues with sepsis and diabetic foot infections which have led to his right BKA in the past. He is noncompliant with his care is homeless and lives in his car and still has an on and off pattern with IV drug abuse. His last operation he said with left-sided TMA was at [facility] in [place] however he is here this time saying that they do not take good care of him there anymore. He apparently had cellulitic changes which seems to be improved however there still little bit of drainage from left lateral plantar small open wound. It seems very painful to him and he is not very compliant with allowing examination. X-rays were reviewed which do show significant osteomyelitis of the metatarsal bone at the proximal aspect of the TMA. Patient would benefit from hospitalization IV antibiotics no need for any surgical intervention at this does not appear to be a abscess present. Patient is a high-risk for leaving AMA as he has done this once already. He was seen by Infectious diseases who is recommending p.o. antibiotics for 10 days. He can do this and then follow up with the wound care clinic if there continues to be a wound. In the meantime would just do gauze dressing to evaluate the type of drainage and we will follow along while he is in the hospital in case and I and D needs to be carried out. I am concerned that he may not agree to this as well. <Lizzette Redman MD - Last Filed: 11/15/24 14:41> Procedures Date of Service Date of Service: 11/15/24 <Osito Christianson PA-C - Last Filed: 11/15/24 13:46> 11/15/24 <Lizzette Redman MD - Last Filed: 11/15/24 14:41>
--- NOTE | 2024-11-15 13:52 | HO.WOUND ---
Wound Consult: Initial 39 yr old male admitted to [facility] [place] [facility] on 11/14/24- See progress notes and H&P for detailed history. Wound consult placed for left lower extremity. Patient agreeable to assessment and photo documentation. 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 Patient minimally engaged, reports wound has been present for months, unable to tell if he does wound care at home. Patient agreeable to dressing application, unable to provide adequate cleansing or assessment of depth due to patient pain. Left TMA healed - intact dry adherent brown scab to lateral foot Left plantar Etiology: diabetic wound left plantar 5th metatarsal head Measurements: 0.5cm x 0.5cm x 0.2cm Wound Bed: moist yellow Drainage / Odor: scant yellow no odor Edges: ? open Kyara wound: ? No Induration, Fluctuance, mild swelling and warms, redness present, previously marked and has receded from that line Pain: yes Goals of Treatment: ? moist healing, drainage absorption, antimicrobial effects with durafiber. systemic treatment of osteo per providers Recommendations: 1. Turn and Reposition every 2 hours and as needed for patient comfort. Use pillows or wedges to support off loading positions. 2. Off Load all bony prominences with use of pillows and heel boots if needed. Apply Preventative foams where needed. 3. Monitor for incontinence and moisture control, use barrier creams when needed for prevention and treatment. 4. Provide adequate and supplemental nutrition. 5. Order or Continue low air loss mattress. 6. When applicable maintain blood glucose levels per Providers order. Left foot: cleanse with saline, pat dry, apply durafiber ag, cover with abd pad/gauze, wrap with rolled gauze, change daily and PRN Re-consult wound care Nurse for wound deterioration or wound changes.
--- NOTE | 2024-11-15 14:00 | PC.NURSE ---
Pt still refusing abx administration or assessment, from this RN and hospitalist Dr. Johnson (@ bedside). We reached out to significant other Kalyn, who states she will talk with the patient. Wound care able to complete dressing change w/o incident. Awaiting further orders.
--- NOTE | 2024-11-15 14:13 | W.PM.IDCN ---
History of Present Illness Data of Consult Service Date: 11/15/24 Requesting physician: Og Johnson Primary Care Provider: Kenney Larsen MD [facility] Reason for consult: left foot redness,swelling resolved He has had redness and discomfort left foot. He has this resolved. Symptoms had been present for several days. Review of Systems Review of Systems: Yes all other systems are reviewed and are negative PMFSH Past Medical History Medical History History of MRSA infection Chronic osteomyelitis of left foot Tobacco use disorder Polysubstance (including opioids) dependence, daily use Diabetes type I Family History Family history: reviewed and not pertinent Surgical History Surgical History S/P debridement (02/28/22) History of foot surgery Hx of surgical amputation of finger History of transmetatarsal amputation of left foot Social History Social History Household Members Other:: Lives in basement of Grandmothers House Are you a primary health care specialist to a significant other at home: No Comment: requests crutches Patient Tobacco Use Status: Current everyday Tobacco user Tobacco use type: Cigarette Cigarette Packs Per Day: 0.75 Cigarettes Per Day: 15.0 Years Smoked: ~ 20 Smoked in Last 30 Days: Yes Use of substances other than those prescribed or required for medical reasons: Yes Substance Use Type: Heroin Substance Use Frequency: Daily Last Used Substance: Just Prior to Admission Advance Directives: No Advance Directives Information Provided: No service: No Travel History Ebola Risk: Travel/Contact With Anyone From Affected Area/s: No Has Patient Experienced Ebola Symptoms: No Meds Allergies Allergy/AdvReac Type Severity Reaction Status Date / Time cephalexin (From Keflex) Allergy Vomiting Verified 11/14/24 20:30 Active Medications: Current Medications Acetaminophen (Acetaminophen 325 Mg Tablet) 650 mg PO Q6H PRN PRN Reason: Pain, Mild 1-3,fever,headache Albuterol/Ipratropium (Albuterol/Iprat 2.5/0.5mg 3 Ml Ampul.Neb) 3 ml INHALE Q4H PRN PRN Reason: Shortness of Breath/Wheezing Bisacodyl (Bisacodyl 10 Mg Supp.Rect) 10 mg ND BEDTIME PRN PRN Reason: Constipation Calcium Carbonate (Calcium Carbonate 750 Mg Tab.Chew) 750 mg PO Q4H PRN PRN Reason: Heartburn Diazepam (Diazepam 10 Mg/2 Ml Cartridge) 5 mg IVPUSH Q6H PRN PRN Reason: Opiate Withdrawal Enoxaparin Sodium (Enoxaparin Sodium 40 Mg/0.4 Ml Syringe) 40 mg SUBCUT 2200 [facility] Last Admin: 11/15/24 00:59 Dose: Not Given Piperacillin Sod/Tazobactam (Sod 4.5 gm/ Sodium Chloride) 100 mls @ 200 mls/hr IV Q6H [facility] Last Infusion: 11/15/24 07:17 Dose: Infused Vancomycin HCl 1,000 mg/ (Sodium Chloride) 270 mls @ 270 mls/hr IV Q12H [facility] Insulin Glargine (Insulin Glargine,Hum.Rec.Anlog 100 Unit/Ml 10 Ml Vial) 45 unit SUBCUT BEDTIME [facility] Last Admin: 11/15/24 00:59 Dose: Not Given Magnesium Hydroxide (Milk Of Magnesia 30 Ml Oral.Susp) 30 ml PO DAILY PRN PRN Reason: Constipation Melatonin (Melatonin 3 Mg Tablet) 6 mg PO BEDTIME PRN PRN Reason: Insomnia Morphine Sulfate (Morphine Sulfate 2 Mg/Ml Cartridge) 2 mg IVPUSH Q4H PRN; Protocol PRN Reason: Pain, Severe (Pain Scale 7-10) Last Admin: 11/15/24 09:10 Dose: 2 mg Ondansetron HCl (Ondansetron Hcl 4 Mg/2 Ml Vial) 4 mg IVPUSH Q8H PRN PRN Reason: Nausea and Vomiting Last Admin: 11/15/24 01:03 Dose: 4 mg Oxycodone HCl (Oxycodone Hcl Immed Release 5 Mg Tablet) 5 mg PO Q4H PRN PRN Reason: Pain, Moderate(Pain Scale 4-6) Pharmacy Consult (Consult Rx Vancomycin Dosing) 1 each MISCELLANE DAILY PRN PRN Reason: Consult order Polyethylene Glycol (Polyethylene Glycol 3350 17 Gm Powd.Pack) 17 gm PO DAILY [facility] Last Admin: 11/15/24 09:10 Dose: 17 gm Senna (Sennosides 8.6 Mg Tablet) 17.2 mg PO BEDTIME KEREN Sodium Chloride (0.9 % Sodium Chloride Flush 3 Ml Syringe) 3 ml IVFLUSH QSHIFT KEREN Last Admin: 11/15/24 07:16 Dose: Not Given Home Medications ?Medication ?Instructions ?Recorded ?Confirmed ?Last Taken ?Type insulin lispro 100 unit/mL See Protocol subcut DAILY PRN 02/17/22 11/15/24 Unknown History subcutaneous pen (Humalog KwikPen Hyperglycemia (U-100) Insulin) insulin glargine 100 unit/mL (3 35 unit subcut DAILY 11/12/24 11/15/24 11/14/24 History mL) subcutaneous pen (Basaglar KwikPen U-100 Insulin) Physical Exam Exam: Exam: Vital Signs: Vital Signs: Last Vital Signs Temp 98.1 F 11/15/24 09:09 Pulse 72 11/15/24 09:09 Resp 16 11/15/24 09:09 BP 155/81 H 11/15/24 09:09 Pulse Ox 98 11/15/24 09:09 O2 Del Method Room Air 11/15/24 09:09 BMI result Body Mass Index 21.5 Const: General: cooperative HEENT: Head: Yes normal to inspection Face and sinus: Yes normal facial exam Mouth: Normal oral and palatal mucosa present Teeth and gingiva: dentition normal Eyes: General: appearance normal, both eyes and all related structures Pupils: Equal, round and reactive pupils present Resp: Effort & Inspection: normal respiratory effort Cardio: Rate: regular rate Rhythm: regular rhythm GI: Palpation (GI): Soft to palpation and nontender : General: Yes no CVA tenderness Back/Spine/Pelvis: Back: no CVA tenderness Skin: General skin exam: no rashes or lesions noted Neuro: General: moves all extremities Cranial nerves: Yes Equal, round and reactive pupils present Extrem: General: Yes normal to inspection Psych: Appearance: grossly normal Results Labs 11/15/24 06:14 11/15/24 06:14 Labs: Short CBC 11/14/24 11/15/24 Range/Units 21:42 06:14 WBC 6.1 6.7 (4.8-10.8) X10*3/uL Hgb 9.6 L 8.5 L (14.0-18.0) g/dl Hct 29.6 L 27.0 L (42.0-52.0) % Plt Count 592 H D 394 D (160-400) X10*3/uL BMP 11/14/24 11/15/24 21:42 06:14 Sodium 137 139 Potassium 4.3 4.2 Chloride 100 108 Carbon Dioxide 28 26 BUN 16 15 Creatinine 1.04 1.10 Calcium 9.2 8.3 L D Liver Function 11/14/24 11/15/24 Range/Units 21:42 06:14 Total Bilirubin 0.1 0.1 (0.0-1.0) mg/dL Direct Bilirubin < 0.2 (0.0-0.5) mg/dL AST 37 34 (5-37) U/L ALT 35 29 (0-40) U/L Alkaline Phosphatase 566 H 476 H (39-117) U/L Albumin 3.1 L 2.7 L (3.5-5.0) g/dL Assessment and Plan (1) Polysubstance (including opioids) dependence, daily use: Status: Acute (2) Osteomyelitis: Qualifiers: Laterality: left Osteomyelitis location: foot Osteomyelitis type: other Qualified Code(s): M86.8X7 - Other osteomyelitis, ankle and foot Status: Acute (3) Chronic osteomyelitis of left foot: Status: Acute Plan He has chronic OM and looks like resolved exacerbation XR testing will show chronic OM. Doxycycline 100 mg po bid for 10 days. Follow PCP.
--- NOTE | 2024-11-15 14:22 | P.EN_ITS ---
Event Note Date of Service: 11/15/24 Event Note: Addiction consult placed for patient with OUD Medically admitted with concern for osteomyelitis Seen by supervisor microwave earlier in the day, concern for acute withdrawal and pain---methadone 30mg X1 ordered Patient declined methadone when RN attempted to administer. This instructional writer and associate consulting engineer attempted to meet with patient, patient using expletives when telling t/w to leave him alone. Recommendations: Patient declining to meet with [facility] and declining methadone to address any potential withdrawal No further intervention at this time Please re-consult if needed Time Spent With Patient Time: Total time managing care of this patient today ____ minutes.
[2024-11-15 14:56] LABS: Glucose, Whole Blood 430 mg/dL (60-115)
--- NOTE | 2024-11-15 15:08 | PC.NURSE ---
Pt was originally agreeable to medication and treatment after speaking with significant other Kalyn, and was agreeable to zosyn infusion. Upon attempting to administer vancomycin and insulin, pt stated don't even fucking try it . Dr. Johnson aware, pt requesting discharge. Awaiting further orders.
--- NOTE | 2024-11-15 15:15 | MHC.EDTECH ---
Addendum entered by Pamela Boles 11/15/24 15:22: pt states he wants to go home. Refused Vitals. Refuses the Nurse, When gf at bedside Pt remains silent Rn was notifed of Glucose 430. When Rn goes to beside gf not present he refuses/swears. I attempted to ask pt insulin/Meds pt unset glucose is high states thers no food. Patient ate Breakfast tray and two large cups of MilksHakes from [employer]. I asked the pt if he will let him treat him due that he refuses. He stated work on the fucking insulin first RN/Charge are aware of the conversation. Original Note: pt states he wants to go home. Refused Vitals. Refuses the Nurse, When gf at bedside Pt remains silent Rn was notifed of Glucose 430. When Rn goes to beside gf not present he refuses/swears. I attempted to ask pt insulin/Meds pt unset glucose is high states thers no food. Patient ate Breakfast tray and two large cups of Milks from [employer]. I asked the pt if he will let him treat him due that he refuses. He stated work on the fucking insulin first RN/Charge are aware of the conversation.
--- NOTE | 2024-11-15 15:32 | HO.NURTONUR ---
Pt arrived w/worsening LLE wound, +swelling. Hx R BKA, polysubstance use. Pt has signed out AMA multiple times from this and other hospitals. Pt currently refusing most treatment, S.OMeg Mccain contacted and brought to bedside to speak with patient and doctor. Admit plan for IV abx, wound care, and glucose control. Pt reports not eating and states we are not taking care of him, despite eating breakfast and 2 milkshakes today. Additional insulin ordered for BG 430, awaiting sliding scale order. Pt currently refusing sponge clipper. Uses wheelchair. aaox4.
--- NOTE | 2024-11-15 16:16 | PM.DS ---
DS: Providers Provider Date of Service: 11/15/24 Date of admission: 11/14/24 23:33 Date of discharge: 11/15/24 Primary care physician: Kenney Larsen MD Consults: 11/14/24 23:54 Consult to General Surgery Routine Consulting Provider: [facility] Reason for consultation: Acute osteomyelitis left lower extremity Consult to Infectious Diseases Routine Consulting Provider: [facility] Reason for consultation: Acute osteomyelitis of left lower extremity 11/14/24 23:55 Consult to Wound Care Routine Reason for consultation: Osteomyelitis left lower extremity 11/14/24 23:57 Addiction Medicine Provider Routine Consulting Provider: Addiction Covering Reason for consultation: Requesting help with resuming methadone, IV drug use recent Attending physician on discharge: Og Johnson Discharging clinician: Og Johnson DS: Diagnosis Discharge Diagnosis (1) Polysubstance (including opioids) dependence, daily use: Status: Acute (2) Osteomyelitis: Status: Acute (3) Chronic osteomyelitis of left foot: Status: Acute DS: Summary Hospital Course Hospital Course: HPI:39-year-old male with past medical history substance use disorder previously on methadone as of 3 weeks prior currently using illicit drugs via IV, history of overdose requiring Narcan with no report of cardiac or respiratory arrest, peripheral vascular disease, IDDM1, MRSA infection, chronic osteomyelitis involving previous partial foot amputation, tobacco dependence return to the emergency room department today after leaving [place] on 11/12/2024 for this same complaint of left foot pain, drainage and redness. Patient states he has been self medicating with illicit drugs to help with his pain management. Patient states he is ready to remain in the hospital for treatment. Patient also notes that he is having chronic issues with constipation. Appetite has been fair. Imaging done on 11/12/2024 of the ankle and foot of the left leg indicated acute osteomyelitis. Specific for the ankle there is erosion and fragmentation of the proximal 5th metatarsal surgical remnant which has progressed compared to 06/09/2022 and is consistent with acute osteomyelitis. MRI has been recommended by radiologist but patient left [place] before this test could be ordered. Initially patient's blood pressure was 85/42 and patient was lethargic after receiving Valium and morphine. After receiving fluids and over time patient has become more alert awake and interactive. Blood pressure has improved to 94 over 56 with a map of 65. Patient has no leukocytosis with chronic anemia and a platelet count of 592K. Lactic acid initially 4.5 after bolus of fluid now 2.9 we will continue to monitor. Glucose on arrival 320 with no signs of DKA, noting anion gap is closed and CO2 is 28. Alkaline phosphatase 566 likely secondary to chronic osteomyelitis. Blood cultures x2 drawn and pending. Urine drug tox screen pending. Patient is started on vanco and Zosyn. hospital course: Patient was admitted for possible question of osteomyelitis of left lower extremity 5th metatarsal and acute lactic acidosis, in addition has normocytic anemia, diabetes with hyperglycemia: Patient was started on IV antibiotics, seen by ID and surgery: Initially patient was IV antibiotics, also given IV fluids and fingersticks and sliding scale coverage and Lantus for hyperglycemia. Patient suddenly decided to leave against medical advice-does not want to stay, very non cooperative he signed out 2 days ago also. Above was explained to the medical review specialist and him in detail length nursing staff was present , patient is saying lot of aggressive words and f words . We tried to explain to risks of leaving against medical advice in detail length, patient understands and still want to go. Refuses further care. Software Client Architect at bedside explained to her in detail too including patient was told to go to nearest emergency room for further evaluation. Discussed with the ID added p.o. antibiotics doxycycline for 10 days. Above management assessment and plan coordination time spent 45 minute. All questions answered. Time Attestation Total time managing care of this patient today: 45 mintues. Discharge Coordination Time (in mins): 45min Quality: Safe Use of Opioids Does Pt have an Active Cancer Diagnosis on the Problem List?: No Quality: Stroke Does the patient have a stroke diagnosis?: No Physical Exam Exam: Exam: refused Vital Signs: Vital Signs: Last Vital Signs Temp 98.8 F 11/15/24 14:47 Pulse 83 11/15/24 14:47 Resp 18 11/15/24 14:47 BP 138/81 11/15/24 14:47 Pulse Ox 97 11/15/24 14:47 O2 Del Method Room Air 11/15/24 14:47 BMI result Body Mass Index 21.5 DS: Data Data Completed and Pending Labs on day of discharge: Laboratory Results - last 24 hr 11/14/24 11/14/24 11/15/24 21:42 23:43 00:07 WBC 6.1 RBC 3.79 L Hgb 9.6 L Hct 29.6 L MCV 78.1 L MCH 25.3 L MCHC 32.4 RDW 14.2 Plt Count 592 H D MPV 8.8 L Immature Gran % (Auto) 0.5 H Neut % (Auto) 54.8 Lymph % (Auto) 36.4 Phelps % (Auto) 5.0 Eos % (Auto) 3.0 Baso % (Auto) 0.3 Lymph # (Auto) 2.2 Phelps # (Auto) 0.3 Eos # (Auto) 0.2 Baso # (Auto) 0.0 Abs Immat Gran (auto) 0.03 Absolute Neuts (auto) 3.3 Absolute Nucleated RBC 0.000 Nucleated RBC % (auto) 0.0 VBG pH 7.37 VBG pCO2 59 VBG pO2 38 VBG HCO3 34 H VBG O2 Saturation 57.0 VBG Base Excess 8.4 Sodium 137 Potassium 4.3 Chloride 100 Carbon Dioxide 28 Anion Gap 13 BUN 16 Creatinine 1.04 Estim Creat Clear Calc 91.7 Estimated GFR > 60 POC Glucose Random Glucose 320 H Lactic Acid 2.9 H* Lactic Acid F/U @ 2Hr 1.7 Calcium 9.2 Total Bilirubin 0.1 Direct Bilirubin < 0.2 AST 37 ALT 35 Alkaline Phosphatase 566 H Total Protein 6.7 Albumin 3.1 L Ethyl Alcohol 12 Hepatitis A IgM Ab Hep Bs Antigen Hep Bs Antibody Hep B Core Total Ab Hepatitis C Ab (EIA) HIV 1&2 Ab/P24 Ag 4thGn 11/15/24 11/15/24 11/15/24 00:13 06:14 14:52 WBC 6.7 RBC 3.37 L Hgb 8.5 L Hct 27.0 L MCV 80.1 MCH 25.2 L MCHC 31.5 RDW 14.2 Plt Count 394 D MPV 10.3 Immature Gran % (Auto) 0.4 Neut % (Auto) 58.8 Lymph % (Auto) 33.5 Phelps % (Auto) 4.8 Eos % (Auto) 2.4 Baso % (Auto) 0.1 Lymph # (Auto) 2.2 Phelps # (Auto) 0.3 Eos # (Auto) 0.2 Baso # (Auto) 0.0 Abs Immat Gran (auto) 0.03 Absolute Neuts (auto) 3.9 Absolute Nucleated RBC 0.000 Nucleated RBC % (auto) 0.0 VBG pH VBG pCO2 VBG pO2 VBG HCO3 VBG O2 Saturation VBG Base Excess Sodium 139 Potassium 4.2 Chloride 108 Carbon Dioxide 26 Anion Gap 9 L BUN 15 Creatinine 1.10 Estim Creat Clear Calc 86.7 Estimated GFR > 60 POC Glucose 199 H 430 H* Random Glucose 185 H Lactic Acid Lactic Acid F/U @ 2Hr Calcium 8.3 L D Total Bilirubin 0.1 Direct Bilirubin AST 34 ALT 29 Alkaline Phosphatase 476 H Total Protein 5.7 L Albumin 2.7 L Ethyl Alcohol Hepatitis A IgM Ab Nonreactive Hep Bs Antigen Negative Hep Bs Antibody NONREACTIVE Hep B Core Total Ab Nonreactive Hepatitis C Ab (EIA) Nonreactive HIV 1&2 Ab/P24 Ag 4thGn Nonreactive Imaging Chest x-ray: Radiologist's impression: foot xray: Findings are consistent with acute osteomyelitis of proximal 5th metatarsal surgical remnant which has progressed compared to 06/09/2022. Consider MRI with contrast for definitive diagnostic information. left ankle xray: Erosion and fragmentation of the proximal 5th metatarsal surgical remnant has progressed when compared to previous exam. The appearance is consistent with acute osteomyelitis. Discharge Plan Discharge Anticipated Discharge Date/Time: 11/15/24 16:12 Patient Disposition: Left Against Medical Advice Discharge Diagnosis: Foot infection Referrals: Kenney Larsen MD [Primary Care Provider, Medical] - 1 Week Discharge Medications: New doxycycline hyclate 100 mg tablet 100 mg PO BID Qty: 19 0RF No Action insulin glargine [Basaglar KwikPen U-100 Insulin] 100 unit/mL (3 mL) insulin pen 35 unit subcut DAILY insulin lispro [Humalog KwikPen Insulin] 100 unit/mL insulin pen See Protocol subcut DAILY PRN (Reason: Hyperglycemia) Protocol: Insulin Correction Scale Less than or equal to 110 ---- Give (units): 0 111 to 150 Give (units): 0 151 to 200 Give (units): 2 201 to 250 Give (units): 4 251 to 300 Give (units): 6 301 to 350 Give (units): 8 Greater than 350 Give (units): 10 Call MD if Blood Glucose > : 350 Rx Instructions: up to 15-20 units Discharge Orders: Discharge Order (Routine); Ordered 11/15/24 Ordered By: Og Johnson Diet: Advance to usual diet Stand Alone Forms: Against Medical Advice Print Language: Georgian Care Plan Goals: left ama Health Concerns: left ama Plan of Treatment: left ama Assessment: left ama
== END 2024-11-15 16:30 | disposition left against medical advice (07) | DRG 638 ==
LOC: HO.ED 22:18 → HO.EDOVER 23:47 → HO.IMC 11-15 15:18 → HO.EDOVER 11-15 16:04
PROVIDERS: Internal Medicine; Admitting Provider Nurse Practitioner Family; Emergency Provider Emergency Medicine; PCP Internal Medicine; Visit Provider Internal Medicine
DX: E10.69 Type 1 diabetes mellitus with other specified complication (principal); F11.20 Opioid dependence, uncomplicated; M86.172 Other acute osteomyelitis, left ankle and foot; Z59.02 Unsheltered homelessness; M86.672 Other chronic osteomyelitis, left ankle and foot; I95.2 Hypotension due to drugs; T42.75XA Adverse effect of unspecified antiepileptic and sedative-hypnotic drugs, initial encounter; F19.10 Other psychoactive substance abuse, uncomplicated; Z86.14 Personal history of Methicillin resistant Staphylococcus aureus infection; F17.210 Nicotine dependence, cigarettes, uncomplicated; Z71.6 Tobacco abuse counseling
CPT/HCPCS: 36415; 80048; 80053; 80076; 80307; 82803; 82947; 83605; 85025; 86704; 86706; 86709; 86803; 87040; 87340; 87389; 99285; J2270; J2405; J2543; J3360; J3374

== ENCOUNTER → 2024-11-14 23:33 | Outpatient (BNV) | payer MEDICARE, MEDICAID, SELFPAY | PROVIDERS: Admitting Provider Nurse Practitioner Family; Emergency Provider Emergency Medicine; PCP Internal Medicine | DX: M86.672 Other chronic osteomyelitis, left ankle and foot (principal) | CPT/HCPCS: 99223 ==

== ENCOUNTER → 2024-11-14 23:33 | Outpatient (BNV) | payer MEDICARE, MEDICAID, SELFPAY | PROVIDERS: Admitting Provider Nurse Practitioner Family; Emergency Provider Emergency Medicine; PCP Internal Medicine; Visit Provider Internal Medicine | DX: F11.20 Opioid dependence, uncomplicated (principal); F19.20 Other psychoactive substance dependence, uncomplicated; M86.8X7 Other osteomyelitis, ankle and foot; M86.672 Other chronic osteomyelitis, left ankle and foot | CPT/HCPCS: 99222 ==

== ENCOUNTER → 2024-11-14 23:33 | Outpatient (BNV) | payer MEDICARE, MEDICAID, SELFPAY | PROVIDERS: Admitting Provider Nurse Practitioner Family; Emergency Provider Emergency Medicine; PCP Internal Medicine; Visit Provider Internal Medicine | DX: F11.20 Opioid dependence, uncomplicated (principal); F19.20 Other psychoactive substance dependence, uncomplicated; M86.8X7 Other osteomyelitis, ankle and foot; M86.672 Other chronic osteomyelitis, left ankle and foot; R73.9 Hyperglycemia, unspecified | CPT/HCPCS: 99223; 99239 ==